=== PATIENT | male | born 1985 | race Caucasian/White ===

== ENCOUNTER 2016-07-03 12:25 | Inpatient (IN) | payer OTHER ==
[~2016-07-03] VITALS: Ht 185.4 cm; Wt 88.5 kg
--- NOTE | 2016-07-03 14:00 | ED GENERAL ADULT ---
History of Present Illness General Chief Complaint: Animal/Insect Bite Stated Complaint: SPIDER BIT PER PT Source: patient Exam Limitations: no limitations Vital Signs & Intake/Output Vital Signs & Intake/Output Vital Signs Date Time Temp Pulse Resp B/P B/P Pulse O2 O2 Flow FiO2 Mean Ox Delivery Rate 07/03 2009 Room Air 07/03 2008 100.3 07/03 2008 100.3 100 22 108/52 98 Room Air 07/03 1936 99.2 90 16 119/57 98 Room Air 07/03 1848 100.4 07/03 1846 100.4 90 18 112/54 97 Room Air 07/03 1605 99.4 108 20 102/51 99 Room Air 07/03 1449 101.1 07/03 1443 100.8 07/03 1432 100.8 118 20 138/88 99 Room Air 07/03 1235 101.8 07/03 1230 101.8 120 20 152/93 97 Room Air Allergies Coded Allergies: No Known Allergies (07/03/16) Reconcile Medications No Known Home Medications Triage Note: LEFT SHIELDS RED AND SWOLLEN SINCE YESTERDAY. PT STATES HE INJURES HIMSELF FREQUENTLY AT WORK BUT DOESN'T REMEMBER RUNNING INTO ANYTHING AT WORK. PT QUESTIONING WHETHER HE WAS BITTEN BY SPIDER. PT VERY ANXIOUS IN TRIAGE. PT STATES HE HAS FLU LIKE SYMPTOMS THAT STARTED YESTERDAY Triage Nurses Notes Reviewed? yes Onset: Abrupt Duration: day(s): (few), constant, continues in ED Timing: single episode today Injury Environment: home Severity: moderate, severe No Modifying Factors: none HPI: 31-year-old male comes into emergency room for further evaluation of swelling and redness to his left lower leg. Patient reports that he does not recall any injury or trauma to the leg that he can remember. He has been going on for the last couple days. Today he has been having fever chills and body aches. Some associated nausea. Its a sharp throbbing pain. No prior history. Denies any other associated symptoms. (AUDIE DORADO) Past History Travel History Traveled to [place] past 21 day No Medical History Any Pertinent Medical History? none Surgical History Surgical History: neck/cervical Psychosocial History What is your primary language Dominican Tobacco Use: Never used ETOH Use: denies use Illicit Drug Use: marijuana Family History Hx Contributory? No (AUDIE DORADO) Review of Systems Review of Systems Constitutional: Reports: see HPI. EENTM: Reports: no symptoms. Respiratory: Reports: no symptoms. Cardiovascular: Reports: no symptoms. GI: Reports: no symptoms. Genitourinary: Reports: no symptoms. Musculoskeletal: Reports: see HPI. Skin: Reports: see HPI. Neurological/Psychological: Reports: no symptoms. Hematologic/Endocrine: Reports: no symptoms. Immunologic/Allergic: Reports: no symptoms. All Other Systems: Reviewed and Negative (AUDIE DORADO) Physical Exam Physical Exam General Appearance: well developed/nourished, alert, awake Head: atraumatic Eyes: Bilateral: normal appearance. Ears, Nose, Throat: normal pharynx, hearing grossly normal Neck: normal inspection, full range of motion Respiratory: normal breath sounds, no respiratory distress Cardiovascular: regular rate/rhythm, tachycardia Extremities: swelling, erythema, dorsalis pedis pulse intact, located on left anterior tibia,4" x 4.5" Neurologic/Psych: awake, alert, oriented x 3, normal gait Skin: rash (see above) Lymphatic: inguinal node tender (L) (swollen) Core Measures ACS in differential dx? No CVA/TIA Diagnosis: No Severe Sepsis Present: Yes BC x2: Yes Lactic Acid x2: Yes IV ABX Broad Spectrum: Yes NS/LR Started: Yes Septic Shock Present: No (AUDIE DORADO) Progress Differential Diagnoses I considered the following diagnoses in my evaluation of the patient: Cellulitis, abscess, osteomyelitis, sepsis, Lyme disease, necrotizing fasciitis, Plan of Care: Orders Procedure Date/time Status Heart Healthy Diet 07/04 B Active Pathway - chart 07/03 2021 Active Pathway - chart 07/04 2019 Active Code Status 07/04 2019 Active Vital Signs 07/03 2009 Active Teach/Educate 07/03 2009 Active Pain Treatment and Response 07/03 2009 Active Nutritional Intake, Monitor 07/03 2009 Active Isolation 07/03 2009 Active Intake & Output 07/03 2009 Active Patient Care Conference 07/03 2010 Active Activity/Ambulation 07/03 2009 Active Admit to inpatient 07/03 1741 Active Vital Signs 07/03 1741 Active Code Status 07/03 1741 Complete Patient Data 07/03 1725 Active LACTIC ACID 07/03 1649 Complete Add-on Test (ER Only) 07/03 1645 Active EXTREMETIES CULTURE 07/03 1636 Active Intake & Output 07/03 1444 Active BLOOD CULTURE 07/03 1349 Active LACTIC ACID 07/03 1349 Complete COMPREHENSIVE METABOLIC PANEL 07/03 1349 Complete CBC WITHOUT DIFFERENTIAL 07/03 1349 Complete House Staff 07/03 UNK Active Vital Signs 07/03 UNK Active Current Medications Sig/Rk Start time Last Medication Dose Stop Time Status Admin Enoxaparin Sodium 40 MG DAILY 07/04 1000 UNVr (Lovenox) Cefazolin Sodium 1,000 MG IQ8 07/04 0000 UNVr (Kefzol-Ancef Inj) Acetaminophen 650 MG Q6P PRN 07/03 2030 UNVr (Tylenol) Laboratory Tests 07/03/16 1642: Lactic Acid 0.8 07/03/16 142: Anion Gap 13, Estimated GFR > 60, BUN/Creatinine Ratio 13.8, Glucose 110 H, Lactic Acid 1.3, Calcium 9.6, Total Bilirubin 1.0, AST 30, ALT 35, Alkaline Phosphatase 58, Total Protein 7.5, Albumin 4.6, Globulin 2.9, Albumin/Globulin Ratio 1.6, CBC w Diff MAN DIFF ORDERED, RBC 4.76, MCV 86.0, MCH 29.0, RDW 13.5, MPV 8.1, Gran % 94.1 H, Lymphocytes % 2.9 L, Monocytes % 2.8, Eosinophils % 0.2, Basophils % 0 L, Absolute Granulocytes 16.6 H, Segmented Neutrophils 87 H, Band Neutrophils 2, Absolute Lymphocytes 0.5 L, Lymphocytes 6 L, Monocytes 3, Absolute Monocytes 0.5, Eosinophils 1, Absolute Eosinophils 0, Basophils 1, Absolute Basophils 0, Platelet Estimate ADEQUATE, Normocytic RBCs VERIFIED, Normochromic RBCs VERIFIED, PUBS MCHC 33.7 Microbiology 07/03 1636 EXTREMITIE: Culture & Sensitivity - RECD 07/03 163 EXTREMITIE: Gram Stain - RECD 07/03 1422 BLOOD: Blood Culture - RECD 07/03 1400 BLOOD: Blood Culture - RECD Diagnostic Imaging: Viewed by Me: Radiology Read, Ultrasound. Discussed w/RAD: Radiology Read, Ultrasound. Radiology Impression: SERVICE DATE: 07/03/16-1350 EXAM TYPE: RAD - XRY-TIBIA- FIBULA, LEFT EXAMINATION: XR TIBIA AND FIBULA, LEFT CLINICAL INFORMATION: 31- year-old male presented with erythema, swelling, fever, over the left tibial region, suspected osteomyelitis. COMPARISON: None. TECHNIQUE: AP and lateral views of the left tibia and fibula were obtained. Total of 4 images. FINDINGS: Soft tissue swelling is noted along the proximal to mid anterior aspect of the left tibia without any soft tissue gas formation or any underlying cortical destruction or periosteal reaction or any radiopaque foreign body. Specifically, the underlying tibia as well as the fibula appear intact without any focal osseous abnormality or periosteal reaction. IMPRESSION: Nonspecific soft tissue swelling is noted along the proximal to mid anterior part of the left leg without any underlying radiographic evidence of osteomyelitis. DICTATED BY: JW BAZAN MD DATE/TIME DICTATED:07/03/161438 POLYTECHNIC TEACHER:JOHN DATE/TIME TRANSCRIBED:07/03/161438 CONFIDENTIAL, DO NOT COPY WITHOUT ALEXIS, SERVICE DATE: 07/03/16 EXAM TYPE: US - US-SUPERFICIAL IMAGING EXTREMI EXAMINATION: US SUPERFICIAL IMAGING, EXTREMITY CLINICAL INFORMATION: Swelling and pain at the left lower anterior tibia. Rule out abscess. COMPARISON: None TECHNIQUE: Multiple grayscale and color Doppler sonographic images were obtained through the area of patient's symptoms at the anterior aspect of the mid tibia. FINDINGS: A small focal area of ill-defined hypoechoic material is present in the edematous subcutaneous soft tissues at the area of palpable abnormality. This area measures 0.9 x 0.5 x 0.9 cm. Surrounding soft tissues are edematous with increased blood flow. No evidence of extension into the deeper soft tissues below the superficial fascial plane overlying the musculature. IMPRESSION: A 0.9 cm complex in the subcutaneous collection in the soft tissues overlying the mid tibia, most compatible with a small abscess. DICTATED BY: BEATRICE KERNS MD DATE/ TIME DICTATED:07/03/161529 POLYTECHNIC TEACHER:JOHN Initial ED EKG: none (AUDIE DORADO) Departure Departure Disposition: STILL A PATIENT Condition: Stable Clinical Impression Primary Impression: Sepsis Secondary Impressions: Cellulitis Referrals: PATIENT HAS NO PRIMARY CARE DR (PCP/Family) Departure Forms: Customer Survey General Discharge Information Prescriptions: Current Visit Scripts No Known Home Medications Admission Note Spoke With: ARTEMIO MERINO MD Documentation of Exam: Documentation of any treatments & extenuating circumstances including Concerns Regarding Discharge (functional status, medication knowledge or non-compliance, living conditions, etc.) that warrant an admission rather than observation: IV fluids ordered. 3 L ordered. icv UNASYN ordered. Blood cultures drawn. Patient will require serial blood pressure checks as well as repeat blood work. IV antibiotics. Meets criteria for sepsis. (AUDIE DORADO) PA/FAMILY PRACTICE PHYSICIAN Co-Sign Statement Statement: ED Attending supervision documentation- [x] I saw and evaluated the patient. I have also reviewed all the pertinent lab results and diagnostic results. I agree with the findings and the plan of care as documented in the PA's/FAMILY PRACTICE PHYSICIAN's documentation. [x] I have reviewed the ED Record and agree with the PA's/FAMILY PRACTICE PHYSICIAN's documentation. [] Additions or exceptions (if any) to the PAs/FAMILY PRACTICE PHYSICIAN's note and plan are summarized below: [] (ANA SAINI DO) Procedures Incision and Drainage Site: left lower extremity Blade Size: 11 I & D Procedure: Yes: betadine prep, sterile drapes applied, sterile dressing applied. No: wick placed. Progress: 1% lidocaine, no discharge, culture obtained, too small of area for packing (AUDIE DORADO) Critical Care Note Critical Care Note Critical Care Time: 30-74 min (35 min) (AUDIE DORADO)
[2016-07-03 14:33] LABS: ABSOLUTE BASOPHIL COUNT 0 /CUMM (0.0-0.2); ABSOLUTE EOSINOPHIL COUNT 0 /CUMM (0.0-0.7); ABSOLUTE GRANULOCYTE CT 16.6 /CUMM (1.4-6.5); ABSOLUTE LYMPH COUNT 0.5 /CUMM (1.2-3.4); ABSOLUTE MONOCYTE COUNT 0.5 /CUMM (0.10-0.60); BASOPHIL % 0 % (0.0-2.0); EOSINOPHIL % 0.2 % (0-5); GRANULOCYTE % 94.1 % (42.2-75.2); MEAN CORPUSCULAR HGB CONC 33.7 G/DL (33.0-37.0); MEAN PLATELET VOLUME 8.1 FL (7.4-10.4); PLATELET COUNT 257 /CUMM (130-400); RBC DISTRIBUTION WIDTH 13.5 % (11.5-14.5); RED BLOOD CELL CT 4.76 /CUMM (4.70-6.10); WHITE BLOOD CELL COUNT 17.6 /CUMM (4.8-10.8)
--- NOTE | 2016-07-03 14:48 | RADIOLOGY REPORT ---
EXAMINATION: XR TIBIA AND FIBULA, LEFT CLINICAL INFORMATION: 31-year-old male presented with erythema, swelling, fever, over the left tibial region, suspected osteomyelitis. COMPARISON: None. TECHNIQUE: AP and lateral views of the left tibia and fibula were obtained. Total of 4 images. FINDINGS: Soft tissue swelling is noted along the proximal to mid anterior aspect of the left tibia without any soft tissue gas formation or any underlying cortical destruction or periosteal reaction or any radiopaque foreign body. Specifically, the underlying tibia as well as the fibula appear intact without any focal osseous abnormality or periosteal reaction. IMPRESSION: Nonspecific soft tissue swelling is noted along the proximal to mid anterior part of the left leg without any underlying radiographic evidence of osteomyelitis.
--- NOTE | 2016-07-03 15:41 | ULTRASOUND REPORT ---
EXAMINATION: US SUPERFICIAL IMAGING, EXTREMITY CLINICAL INFORMATION: Swelling and pain at the left lower anterior tibia. Rule out abscess. COMPARISON: None TECHNIQUE: Multiple grayscale and color Doppler sonographic images were obtained through the area of patient's symptoms at the anterior aspect of the mid tibia. FINDINGS: A small focal area of ill-defined hypoechoic material is present in the edematous subcutaneous soft tissues at the area of palpable abnormality. This area measures 0.9 x 0.5 x 0.9 cm. Surrounding soft tissues are edematous with increased blood flow. No evidence of extension into the deeper soft tissues below the superficial fascial plane overlying the musculature. IMPRESSION: A 0.9 cm complex in the subcutaneous collection in the soft tissues overlying the mid tibia, most compatible with a small abscess.
--- NOTE | 2016-07-03 16:50 | History & Physical ---
HELENA GORDON 07/03/16 2070: General Information and HPI MD Statement: I have seen and personally examined YONI HODGE and documented this H&P. The patient is a 31 year old M who presented with a patient stated chief complaint of redness and swelling Source of Information: patient Exam Limitations: no limitations History of Present Illness: 31-year-old gentleman with past medical history significant for Lyme disease treated with 3 weeks doxycycline about 15 years ago present is a gentleman with redness and swelling in left lower extremity. 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 Does not remember any trauma. He noticed swelling and redness of his left estrella early this morning and no associated itching, punctate menjivar or discharge. He also reports having subjective fevers, myalgias and chills. Denies nausea, abdominal pain, any other rash anywhere else Allergies/Medications Allergies: Coded Allergies: No Known Allergies (07/03/16) Compliance With Home Meds: UNKNOWN Past History Travel History Traveled to [place] past 21 day No Surgical History Surgical History: neck/cervical Past Family/Social History Family History Relations & Conditions if any Relation not specified for: Lung cancer Psychosocial History Where do you live? Home Who Do You Live With? self Smoking Status: Never Smoked ETOH Use: denies use Illicit Drug Use: marijuana Functional Ability ADLs Independent: dressing, eating, toileting, bathing. Ambulation: independent IADLs Independent: shopping, housework, finances, food prep, telephone, transportation , medication admin. Review of Systems Review of Systems Constitutional: Reports: chills, fever, malaise. Denies: diaphoresis, weakness, unexplained weight loss. Cardiovascular: Denies: chest pain, edema, orthopena, palpitations, peripheral edema, syncope. Respiratory: Denies: cough, hemoptysis, orthopnea, short of breath, sputum production, stridor, wheezing. GI: Denies: abdominal pain, bloating, constipation, diarrhea, distention, bowel incontinence, melena, nausea, bloody stool, changes in stool, vomiting, steatorrhea. Genitourinary: Denies: discharge, dysuria, frequency, hematuria, hesitation, nocturia, pain, urgency. Exam & Diagnostic Data Last 24 Hrs of Vital Signs/I&O Vital Signs Date Time Temp Pulse Resp B/P B/P Pulse O2 O2 Flow FiO2 Mean Ox Delivery Rate 07/03 2009 Room Air 07/03 2008 100.3 07/03 2008 100.3 100 22 108/52 98 Room Air 07/03 1936 99.2 90 16 119/57 98 Room Air 07/03 1848 100.4 07/03 1846 100.4 90 18 112/54 97 Room Air 07/03 1605 99.4 108 20 102/51 99 Room Air 07/03 1449 101.1 07/03 1443 100.8 07/03 1432 100.8 118 20 138/88 99 Room Air 07/03 1235 101.8 07/03 1230 101.8 120 20 152/93 97 Room Air Intake & Output 07/03 1600 07/03 0800 07/03 0000 Intake Total 1050 Output Total Balance 1050 Intake, IV 1050 Patient 195 lb Weight Physical Exam General Appearance Alert, Oriented X3, Cooperative, No Acute Distress Skin non fluctuant swelling noted on anterior left estrella HEENT Atraumatic, PERRLA, EOMI, Mucous Membr. moist/pink Neck Supple, No thryomegaly Lymphatic Cervical nl Cardiovascular Regular Rate, Normal S1, Normal S2 Lungs Clear to Auscultation, Normal Air Movement Abdomen Normal Bowel Sounds, Soft, No Tenderness Extremities No Edema Diagnostic Data Other Results SERVICE DATE: 07/03/16 EXAM TYPE: US - US-SUPERFICIAL IMAGING EXTREMI FINDINGS: A small focal area of ill-defined hypoechoic material is present in the edematous subcutaneous soft tissues at the area of palpable abnormality. This area measures 0.9 x 0.5 x 0.9 cm. Surrounding soft tissues are edematous with increased blood flow. No evidence of extension into the deeper soft tissues below the superficial fascial plane overlying the musculature. IMPRESSION: A 0.9 cm complex in the subcutaneous collection in the soft tissues overlying the mid tibia, most compatible with a small abscess. SERVICE DATE: 07/03/16 EXAM TYPE: RAD - JMO-LSBNL-JUOGTI, LEFT FINDINGS: Soft tissue swelling is noted along the proximal to mid anterior aspect of the left tibia without any soft tissue gas formation or any underlying cortical destruction or periosteal reaction or any radiopaque foreign body. Specifically, the underlying tibia as well as the fibula appear intact without any focal osseous abnormality or periosteal reaction. IMPRESSION: Nonspecific soft tissue swelling is noted along the proximal to mid anterior part of the left leg without any underlying radiographic evidence of osteomyelitis. Assessment/Plan Assessment: 31-year-old gentleman with past medical history significant for Lyme disease treated with 3 weeks doxycycline about 15 years ago present is a gentleman with redness and swelling in left lower extremity. In ER was found to have fever of 101.8 and white count of 17.6. 0.9 cm complex in the subcutaneous collection in the soft tissues overlying the mid tibia, most compatible with a small abscess. Attempted to drain in ER but was unsuccessful. Was given one dose of IV Unasyn and IV clindamycin in Ed. Problem List: cellulitis/abscess Plan: Admitted general medicine floor vitals per protocol Will start IV cefazolin, pending cultures Continue to trend WBC Regular diet DVT prophylaxis with Lovenox Patient is full code As Ranked By This Provider Problem List: 1. Cellulitis Core Measures/Miscellaneous Acute Coronary Syndrome ACS Diagnosis: No Cerebrovascular Accident CVA/TIA Diagnosis: No Congestive Heart Failure CHF Diagnosis: No Venous Thromboembolism VTE Risk Factors: No Risk Factors No [facility] VTE prophylaxis d/t: LE Edema No VTE Pharm Prophylaxis d/t: No contraindications VTE Diagnosis: No VTE Type: NONE VTE Confirmed by (Test): NONE Severe Sepsis Severe Sepsis Present: Yes BC x2: Yes Lactic Acid x2: Yes IV ABX Broad Spectrum: Yes NS/LR Started: Yes Septic Shock Septic Shock Present: No Miscellaneous Documentation Attending Case Discussed With: ANGELIQUE NAJERA,ARTEMIO Palacio Primary Care Physician: PATIENT HAS NO PRIMARY CARE DR Patient sees these Specialists none Level of Patient Care: General Medicine ISSAC MENDOZA MD 07/03/162101: Resident Review Statement Resident Statement: examined this patient, discussed with sales intern Other Findings: 31 YO healthy male with a pmh of remote lyme disease presents to the ER from home c/o left sided leg pain and swelling. Reports that he may have injuried his leg at work, reports fixing a commerial garage door. States the garage was litered with feces from rodents. Since this injury on sunday reports swelling, pain with fevers and chills. Temperature 99.4, WBC 17.6, granulocytes 94%. On examination erythema, pain, edema, regional lymphadenopathy (inguinal) While in ER was treated for cellulits with clindamycin and unasyn. We will switch this to IV cefazolin. Continue limb elevation, site has been marked. ARTEMIO MERINO 07/13/16 1545: General Information and HPI Allergies/Medications Home Med list Amoxicillin/Potassium Clav (Augmentin 875-125 Tablet) 875 MG-125 MG TABLET 1 TAB PO BID cellulitis Attending MD Review Statement Attending Statement Attending MD Statement: examined this patient, discuss w/resident/PA/REGIONAL ACCOUNT MANAGER, agreed w/resident/PA/REGIONAL ACCOUNT MANAGER, reviewed EMR data (avail), discussed with nursing Attending Assessment/Plan: please see my separate attending note for more details
--- NOTE | 2016-07-03 18:09 | Admission Certification ---
Admission Certification Certification Statement - As attending physician, I certify that at the time of - admission, based on clinical presentation, severity of - symptoms, need for further diagnostic testing and - therapeutic interventions, and risk of adverse outcomes - without in-hospital treatment, in my clinical assessment, - this patient requires an acute hospital stay for a minimum - of two nights or longer. I have also considered psychsocial - factors such as support system, advanced age, financial - issues, cognitive issues, and failed out-patient treatments, - past re-admission history, safety of patient, and lack of - compliance as applicable. Specific rationale supporting this admission is: cellulitis and small abscess on left lower extremity
--- NOTE | 2016-07-03 18:12 | PN- Att Addend ---
Attending MD Review Statement Attending Statement Attending MD Statement: examined this patient, discuss w/resident/PA/CUTTING DEPARTMENT SUPERVISOR, agreed w/resident/PA/CUTTING DEPARTMENT SUPERVISOR, reviewed EMR data (avail), discussed w/nursing, discussed w/ case mgmt Attending Assessment/Plan: Laboratory Tests 07/03/16 1642: Lactic Acid 0.8 07/03/16 1422: Anion Gap 13, Estimated GFR > 60, BUN/Creatinine Ratio 13.8, Glucose 110 H, Lactic Acid 1.3, Calcium 9.6, Total Bilirubin 1.0, AST 30, ALT 35, Alkaline Phosphatase 58, Total Protein 7.5, Albumin 4.6, Globulin 2.9, Albumin/Globulin Ratio 1.6, CBC w Diff MAN DIFF ORDERED, RBC 4.76, MCV 86.0, MCH 29.0, RDW 13.5, MPV 8.1, Gran % 94.1 H, Lymphocytes % 2.9 L, Monocytes % 2.8, Eosinophils % 0.2, Basophils % 0 L, Absolute Granulocytes 16.6 H, Segmented Neutrophils 87 H, Band Neutrophils 2, Absolute Lymphocytes 0.5 L, Lymphocytes 6 L, Monocytes 3, Absolute Monocytes 0.5, Eosinophils 1, Absolute Eosinophils 0, Basophils 1, Absolute Basophils 0, Platelet Estimate ADEQUATE, Normocytic RBCs VERIFIED, Normochromic RBCs VERIFIED, PUBS MCHC 33.7 Vital Signs Date Time Temp Pulse Resp B/P B/P Pulse O2 O2 Flow FiO2 Mean Ox Delivery Rate 07/03 1605 99.4 108 20 102/51 99 Room Air 07/03 1449 101.1 07/03 1443 100.8 07/03 1432 100.8 118 20 138/88 99 Room Air 07/03 1235 101.8 07/03 1230 101.8 120 20 152/93 97 Room Air 31-year-old male with past medical history of Lyme disease in the past for which he was treated with 3 weeks of antibiotics presented to the emergency room. The redness and swelling in the left lower extremity and the estrella area. Patient in ER was found to have fever of 101.8 and white count of 17.6. Patient is being admitted for cellulitis. There was some fluid collection 1 cm on ultrasound and an attempt was made by the ER to drain it but no fluid was obtained. Cellulitis/abscess-we'll admit him to medicine and start him on IV cefazolin. We have marked the area of cellulitis and I will follow-up on it tomorrow. Will see how patient does on IV antibiotics. He got a dose of IV Unasyn and IV clindamycin in the emergency room. We will repeat a white count in the morning.
[2016-07-03 20:09] VITALS: BP 108/52
[2016-07-03 21:24] VITALS: BP 100/50
[2016-07-04 02:18] VITALS: BP 110/70
[2016-07-04 06:25] VITALS: BP 130/74
[2016-07-04 07:51] LABS: ABSOLUTE BASOPHIL COUNT 0 /CUMM (0.0-0.2); ABSOLUTE EOSINOPHIL COUNT 0.1 /CUMM (0.0-0.7); ABSOLUTE GRANULOCYTE CT 16.2 /CUMM (1.4-6.5); ABSOLUTE LYMPH COUNT 0.4 /CUMM (1.2-3.4); ABSOLUTE MONOCYTE COUNT 0.7 /CUMM (0.10-0.60); BASOPHIL % 0 % (0.0-2.0); EOSINOPHIL % 0.4 % (0-5); GRANULOCYTE % 93.6 % (42.2-75.2); MEAN CORPUSCULAR HGB 29.2 PG (27.0-31.0); MEAN CORPUSCULAR HGB CONC 33.5 G/DL (33.0-37.0); MEAN PLATELET VOLUME 8.9 FL (7.4-10.4); PLATELET COUNT 208 /CUMM (130-400); RBC DISTRIBUTION WIDTH 13.7 % (11.5-14.5); RED BLOOD CELL CT 4.12 /CUMM (4.70-6.10)
[2016-07-04 08:02] LABS: HEMATOCRIT 35.8 % (42-52)
[2016-07-04 08:51] LABS: WHITE BLOOD CELL COUNT 17.3 /CUMM (4.8-10.8)
--- NOTE | 2016-07-04 13:45 | PN- Housestaff ---
HELENA GORDON 07/04/16 1345: Subjective Follow-up For: cellulitis Subjective: Seen and examined patient, complains of chills overnight and worsening pain in his left leg. Bear weight on that leg with difficulty. Denies chest pain, shortness of breath, abdominal pain. Review of Systems Constitutional: Reports: chills, fever. Denies: diaphoresis, malaise, weakness, unexplained weight loss. Cardiovascular: Denies: chest pain, edema, orthopena, palpitations, peripheral edema, syncope. Respiratory: Denies: cough, hemoptysis, orthopnea, short of breath, sputum production, stridor, wheezing. Objective Last 24 Hrs of Vital Signs/I&O Vital Signs Date Time Temp Pulse Resp B/P B/P Pulse O2 O2 Flow FiO2 Mean Ox Delivery Rate 07/04 1444 100.8 95 20 126/60 96 Room Air 07/04 1304 102.4 07/04 0625 99.0 71 20 130/74 96 Room Air 07/04 0334 100.0 07/04 0219 100.4 07/04 0218 100.4 90 20 110/70 95 Room Air 07/03 2154 99.9 87 20 97 Room Air 07/03 2151 100.3 07/03 2124 100/50 07/03 2009 Room Air 07/03 2008 100.3 07/03 2009 100.3 100 22 108/52 98 Room Air 07/03 1936 99.2 90 16 119/57 98 Room Air 07/03 1848 100.4 07/03 1846 100.4 90 18 112/54 97 Room Air Intake & Output 07/04 1600 07/04 0800 07/04 0000 Intake Total 1200 240 Output Total 850 700 Balance 1200 -850 -460 Intake, IV 800 Intake, Oral 400 240 Number 1 0 Bowel Movements Output, Urine 850 700 Patient 195 lb Weight Weight Reported by Patient Measurement Method Physical Exam General Appearance: Alert, Oriented X3, Cooperative, No Acute Distress Skin: blackish dicolorations of hands b/l Cardiovascular: Regular Rate, Normal S1, Normal S2 Lungs: Clear to Auscultation, Normal Air Movement Abdomen: Normal Bowel Sounds, Soft, No Tenderness Extremities: increased warmth and tenderness over left lower extremity compared to yesterday. Current Medications: Current Medications Sig/Rk Start time Last Medication Dose Route Stop Time Status Admin Acetaminophen 650 MG .STK-MED ONE 07/04 0220 DC PO 07/04 0221 Acetaminophen 650 MG Q6P PRN 07/03 2030 AC 07/04 PO 0219 Acetaminophen 0 .STK-MED ONE 07/03 1848 DC PO Acetaminophen 650 MG ONCE ONE 07/03 1845 DC 07/03 PO 07/03 1846 1848 Ampicillin Sodium/ 3,000 MG Q6H 07/04 1000 AC 07/04 Sulbactam Sodium IV 1555 Sodium Chloride 100 ML Ampicillin Sodium/ 3,000 MG Q6 07/04 0755 DC 07/04 Sulbactam Sodium IV 0959 Sodium Chloride 100 ML Cefazolin Sodium 1,000 MG IQ8 07/04 0000 DC 07/04 IV 0104 Codeine 15 MG Q4P PRN 07/03 2145 DC 07/04 PO 1136 Enoxaparin Sodium 40 MG DAILY 07/04 1000 07/04 SC 1001 Ibuprofen 400 MG ONCE ONE 07/03 2145 DC 07/03 PO 07/03 2146 2151 Morphine Sulfate 2 MG Q4P PRN 07/03 2130 AC 07/04 IV 1555 Ondansetron HCl 4 MG ONCE ONE 07/04 0145 DC 07/04 IV 07/04 0146 0137 Ondansetron HCl 4 MG Q6P PRN 07/04 0130 DC IV Ondansetron HCl 0 .STK-MED ONE 07/03 1833 DC .ROUTE Ondansetron HCl 4 MG ONCE ONE 07/03 1830 DC 07/03 IV 07/03 1831 1836 Oxycodone/ 1 TAB Q4P PRN 07/04 1200 AC 07/04 Acetaminophen PO 1301 Sodium Chloride 1,000 ML Q10H 07/04 0800 AC 07/04 IV 07/05 0359 0943 Sodium Chloride 1,000 ML BOLUS ONE 07/03 1630 DC 07/03 IV 07/03 1729 1645 Sodium Chloride 1,000 ML BOLUS ONE 07/03 1630 DC 07/03 IV 07/03 1729 1730 Tetanus Immune 250 UNITS ONCE ONE 07/04 0830 DC 07/04 Globulin IM 07/04 0831 0959 Tetanus Immune 3,000 UNITS ONCE ONE 07/04 0800 CAN Globulin IM 07/04 0801 Trimethobenzamide HCl 200 MG 4 TIMES/DAY PRN 07/04 0145 AC IM Last 24 Hrs of Lab/Eloy Results Last 24 Hrs of Labs/Mics: Laboratory Tests 07/04/16 0618: CBC w Diff NO MAN DIFF REQ, RBC 4.12 L, MCV 87.0, MCH 29.2, RDW 13.7, MPV 8.9, Gran % 93.6 H, Lymphocytes % 2.1 L, Monocytes % 3.9, Eosinophils % 0.4, Basophils % 0 L, Absolute Granulocytes 16.2 H, Absolute Lymphocytes 0.4 L, Absolute Monocytes 0.7 H, Absolute Eosinophils 0.1, Absolute Basophils 0, PUBS MCHC 33.5 Assessment/Plan Assessment: 31-year-old gentleman with past medical history significant for Lyme disease treated with 3 weeks doxycycline about 15 years ago present is a gentleman with redness and swelling in left lower extremity. In ER was found to have fever of 101.8 and white count of 17.6. 0.9 cm complex in the subcutaneous collection in the soft tissues overlying the mid tibia, most compatible with a small abscess. Attempted to drain in ER but was unsuccessful. Was given one dose of IV Unasyn and IV clindamycin in Ed. Hospital day 1 Continues to be febrile with wbc of 17. stable BP. Complains of worsening pain. Cultures growing beta group strep A Problem List: cellulitis/abscess Plan: continue general medicine floor,vitals per protocol as he is currently meets SIRs will continue with IVF for another two bags surgical consult obtain regarding possible I/D Antibiotic switch to IV unasyn Pain control with percocet and IV morphine for break through pain Continue to trend WBC Regular diet DVT prophylaxis with Lovenox Patient is full code Problem List: 1. Cellulitis 2. Sepsis Pain Ratin Pain Location: left leg Pain Goal: Pain 4 or less Pain Plan: percocet and IV morphine for break through Tomorrow's Labs & Rationales: cbc JESUS MURPHY MD 07/04/16 1600: Attending MD Review Statement Attending Statement Attending MD Statement: examined this patient, discuss w/resident/PA/ROLL COATING MACHINE OPERATOR, agreed w/resident/PA/ROLL COATING MACHINE OPERATOR, reviewed EMR data (avail), discussed with nursing, discussed with case mgmt, reviewed images Attending Assessment/Plan: 31-year-old male past medical history of tobacco use was here with an acute cellulitis of the left estrella area with a 0.9 cm subcutaneous collection. Given that he is still febrile to 102 and his white count is still 17,000 will call a general surgery consult to see if there is anything to be drained. I am worried that there might be an underlying abscess that needs to be drained or the possibility that this is an MRSA cellulitis/abscess although my suspicion for MRSA is really very low given that the Pus is growing strep. At this point I'll continue the IV Unasyn, follow-up and general surgery closely and follow clinically.
[2016-07-04 14:44] VITALS: BP 126/60
--- NOTE | 2016-07-04 14:54 | Cons- General Surgery ---
General Information and HPI Consulting Request Date of Consult: 07/04/16 Requested By: JEFFREY NAJERA,JESUS Caldwell History of Present Illness: CC: Left leg cellulitis HPI: 31-year-old nondiabetic nonsmoker otherwise healthy no medications just a history of with repeated procedures, no history of MRSA no family history of MRSA but at work he often gets some cuts and scrapes he doesn't remember this one particular but Sunday morning he noticed some tenderness redness and swelling to his left estrella it got worse he came to the hospital is been admitted he's had some fevers leukocytosis ultrasound was not that impressive but because of persistent pain and fever and leukocytosis surgical consult was called for incision. Presently he has no pain he says the redness and swelling has improved dramatically since earlier this morning he is able to ambulate denies any chills or sweats right now no nausea no headaches. I've reviewed the [facility]. No history of GERD, PUD, bleeding problems, heart disease or issues with anesthesia. Allergies/Medications Allergies: Coded Allergies: No Known Allergies (07/03/16) Home Med List: No Known Home Medications Current Medications: I reviewed Current Medications Sig/Rk Start time Last Medication Dose Route Stop Time Status Admin Acetaminophen 650 MG .STK-MED ONE 07/04 0220 DC PO 07/04 0221 Acetaminophen 650 MG Q6P PRN 07/03 2030 AC 07/04 PO 0219 Acetaminophen 0 .STK-MED ONE 07/03 1848 DC PO Acetaminophen 650 MG ONCE ONE 07/03 1845 DC 07/03 PO 07/03 1846 1848 Ampicillin Sodium/ 3,000 MG Q6H 07/04 1000 AC Sulbactam Sodium IV Sodium Chloride 100 ML Ampicillin Sodium/ 3,000 MG Q6 07/04 0755 DC 07/04 Sulbactam Sodium IV 0959 Sodium Chloride 100 ML Ampicillin Sodium/ 0 .STK-MED ONE 07/03 1636 DC Sulbactam Sodium .ROUTE Ampicillin Sodium/ 3,000 MG ONCE ONE 07/03 1630 DC 07/03 Sulbactam Sodium IV 07/03 1659 1645 Sodium Chloride 100 ML Cefazolin Sodium 1,000 MG IQ8 07/04 0000 DC 07/04 IV 0104 Codeine 15 MG Q4P PRN 07/03 2145 DC 07/04 PO 1136 Enoxaparin Sodium 40 MG DAILY 07/04 1000 AC 07/04 SC 1001 Ibuprofen 400 MG ONCE ONE 07/03 2145 DC 07/03 PO 07/03 2146 2151 Lidocaine 0 .STK-MED ONE 07/03 1614 DC .ROUTE Morphine Sulfate 2 MG Q4P PRN 07/03 2130 AC 07/04 IV 0828 Ondansetron HCl 4 MG ONCE ONE 07/04 0145 DC 07/04 IV 07/04 0146 0137 Ondansetron HCl 4 MG Q6P PRN 07/04 0130 DC IV Ondansetron HCl 0 .STK-MED ONE 07/03 1833 DC .ROUTE Ondansetron HCl 4 MG ONCE ONE 07/03 1830 DC 07/03 IV 07/03 1831 1836 Oxycodone/ 1 TAB Q4P PRN 07/04 1200 AC 07/04 Acetaminophen PO 1301 Sodium Chloride 1,000 ML Q10H 07/04 0800 AC 07/04 IV 07/05 0359 0943 Sodium Chloride 1,000 ML BOLUS ONE 07/03 1630 DC 07/03 IV 07/03 1729 1645 Sodium Chloride 1,000 ML BOLUS ONE 07/03 1630 DC 07/03 IV 07/03 1729 1730 Sodium Chloride 1,000 ML BOLUS ONE 07/03 1400 DC 07/03 IV 07/03 1459 1442 Tetanus Immune 250 UNITS ONCE ONE 07/04 0830 DC 07/04 Globulin IM 07/04 0831 0959 Tetanus Immune 3,000 UNITS ONCE ONE 07/04 0800 CAN Globulin IM 07/04 0801 Trimethobenzamide HCl 200 MG 4 TIMES/DAY PRN 07/04 0145 AC IM Past History Medical History Blood Transfusion Hx: No Neurological: NONE EENT: NONE Cardiovascular: NONE Respiratory: NONE Gastrointestinal: NONE Hepatic: NONE Renal: NONE Musculoskeletal: NONE Psychiatric: NONE Endocrine: NONE Blood Disorders: NONE Cancer(s): NONE 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 Home Who Do You Live With? self Smoking Status: Never Smoked ETOH Use: denies use Illicit Drug Use: marijuana Functional Ability ADLs Independent: dressing, eating, toileting, bathing. Ambulation: independent IADLs Independent: shopping, housework, finances, food prep, telephone, transportation , medication admin. Review of Systems Review of Systems: Constitutional: No fever, sweats or weight loss ENMT: No sore throat Cardiovascular: No chest pain, palpitations or leg swelling Respiratory: No shortness of breath, cough, or sputum or dyspnea on exertion GI: No GERD or bleeding per rectum : No dysuria or hematuria Musculoskeletal: No new muscle weakness, bone or joint pain Skin / Breast: No jaundice, rashes or itching Psychiatric: No history of drug or alcohol abuse no depression or anxiety Hematologic / lymphatic system: No problems with excessive bleeding, bruising, or blood clots Exam & Diagnostic Data Vital Signs and I&O Vital Signs Date Time Temp Pulse Resp B/P B/P Pulse O2 O2 Flow FiO2 Mean Ox Delivery Rate 07/04 1444 100.8 95 20 126/60 96 Room Air 07/04 1304 102.4 07/04 0625 99.0 71 20 130/74 96 Room Air 07/04 0334 100.0 07/04 0219 100.4 07/04 0218 100.4 90 20 110/70 95 Room Air 07/03 2154 99.9 87 20 97 Room Air 07/03 2151 100.3 07/03 2124 100/50 07/03 2009 Room Air 07/03 2009 100.3 07/03 2009 100.3 100 22 108/52 98 Room Air 07/03 1936 99.2 90 16 119/57 98 Room Air 07/03 1848 100.4 07/03 1846 100.4 90 18 112/54 97 Room Air 07/03 1605 99.4 108 20 102/51 99 Room Air Intake & Output 07/04 1600 07/04 0800 07/04 0000 07/03 1600 07/03 0800 07/03 0000 Intake Total 240 1050 Output Total 850 700 Balance -850 -460 1050 Intake, IV 1050 Intake, Oral 240 Number 0 Bowel Movements Output, Urine 850 700 Patient 195 lb 195 lb Weight Weight Reported by Patient Measurement Method Physical Exam: Constitutional: pleasant, no acute distress, conversant Eyes: sclera anicteric ENMT: ears and nose atraumatic, moist mucous membranes, good dentition, no lip lesions Neck: Supple, trachea is midline, no cervical or supraclavicular adenopathy and no palpable thyromegaly Cardiovascular: S1, S2, no murmurs, no peripheral edema Respiratory: clear to auscultation with normal respiratory effort and no intercostal retractions GI: abdomen soft, nontender, nondistended, no palpable hepatosplenomegaly Extremities / lymphatics: symmetrically warm, free range of motion especially left foot and ankle no peripheral edema, no cervical, supraclavicular, axillary, or inguinal adenopathy Musculoskeletal: Normal gait and station, no digital cyanosis, good muscle strength and tone no atrophy, motor grossly 5 out of 5 throughout Skin: no jaundice, no rashes warm, nondiaphoretic, the left tibial region there is some mild edema laterally there is minimal erythema if at all no induration or fluctuance is a small eschar over the bone and a tiny one below it Psychiatric: mood and affect are appropriate and alert and oriented to person place and time Last 24 Hours of Labs: I reviewed Laboratory Tests 07/04 07/03 0618 1642 Chemistry Lactic Acid (0.7 - 2.1 mmol/L) 0.8 Hematology CBC w Diff NO MAN DIFF REQ WBC (4.8 - 10.8 /CUMM) 17.3 H RBC (4.70 - 6.10 /CUMM) 4.12 L Hgb (14.0 - 18.0 G/DL) 12.0 L Hct (42 - 52 %) 35.8 L MCV (80.0 - 94.0 FL) 87.0 MCH (27.0 - 31.0 PG) 29.2 RDW (11.5 - 14.5 %) 13.7 Plt Count (130 - 400 /CUMM) 208 MPV (7.4 - 10.4 FL) 8.9 Gran % (42.2 - 75.2 %) 93.6 H Lymphocytes % (20.5 - 51.1 %) 2.1 L Monocytes % (1.7 - 9.3 %) 3.9 Eosinophils % (0 - 5 %) 0.4 Basophils % (0.0 - 2.0 %) 0 L Absolute Granulocytes (1.4 - 6.5 /CUMM) 16.2 H Absolute Lymphocytes (1.2 - 3.4 /CUMM) 0.4 L Absolute Monocytes (0.10 - 0.60 /CUMM) 0.7 H Absolute Eosinophils (0.0 - 0.7 /CUMM) 0.1 Absolute Basophils (0.0 - 0.2 /CUMM) 0 PUBS MCHC (33.0 - 37.0 G/DL) 33.5 Assessment/Plan Assessment/Plan I reviewed the US from this admission on PACS myself and shows mostly edema is imaged by the radiologist of a 9 mm area but it's flat it's not organized and it doesn't clearly correlate clinically. Impression is despite the temperatures and leukocytosis the patient is improving clinically I don't feel he has something that needs urgent incision and drainage right now maybe it's from antibiotics being modified, these types of things could worsen but is clearly improved I recommend discharging him home when his fever curve improves and follow-up in our surgical office. I urged him to stop smoking as it affects healing. Problem List: 1. Cellulitis Consult Acknowledgment - Thank you for your consult request.
[2016-07-04 21:10] VITALS: BP 140/60
[2016-07-05 06:53] VITALS: BP 122/70
[2016-07-05 08:07] LABS: ABSOLUTE BASOPHIL COUNT 0 /CUMM (0.0-0.2); ABSOLUTE EOSINOPHIL COUNT 0.3 /CUMM (0.0-0.7); ABSOLUTE GRANULOCYTE CT 9.6 /CUMM (1.4-6.5); ABSOLUTE LYMPH COUNT 0.6 /CUMM (1.2-3.4); ABSOLUTE MONOCYTE COUNT 0.6 /CUMM (0.10-0.60); BASOPHIL % 0.1 % (0.0-2.0); EOSINOPHIL % 2.8 % (0-5); GRANULOCYTE % 86.4 % (42.2-75.2); HEMATOCRIT 34.8 % (42-52); MEAN CORPUSCULAR HGB 28.7 PG (27.0-31.0); MEAN PLATELET VOLUME 8.9 FL (7.4-10.4); PLATELET COUNT 191 /CUMM (130-400); RBC DISTRIBUTION WIDTH 13.4 % (11.5-14.5)
[2016-07-05 09:20] LABS: WHITE BLOOD CELL COUNT 11.1 /CUMM (4.8-10.8)
--- NOTE | 2016-07-05 11:12 | PN- Housestaff ---
HELENA GORDON 07/05/16 1112: Subjective Follow-up For: cellulitis Subjective: Seen and examined patient, complains of itchness of skin and fevers. Denies stridor, difficulty breathing, chest pain. Endorses some itchness associated with percocet in the past. He did get penicillin in past and does not report any reactions to pencillin in that past. Review of Systems Constitutional: Reports: chills, fever, malaise. Cardiovascular: Denies: chest pain, edema, orthopena, palpitations, peripheral edema, syncope. Respiratory: Denies: cough, hemoptysis, orthopnea, short of breath, sputum production, stridor, wheezing. Gastrointestinal: Denies: abdominal pain, bloating, constipation, diarrhea, distention, bowel incontinence, melena, nausea, bloody stool, changes in stool, vomiting, steatorrhea. Objective Last 24 Hrs of Vital Signs/I&O Vital Signs Date Time Temp Pulse Resp B/P B/P Pulse O2 O2 Flow FiO2 Mean Ox Delivery Rate 07/05 1532 99.9 07/05 1511 97.7 82 20 112/82 98 Room Air 07/05 0653 98.9 70 18 122/70 94 Room Air 07/05 0414 98.5 07/05 0414 98.5 07/05 0327 100.7 07/05 0310 100.7 07/04 2110 99.0 79 20 140/60 96 Room Air 07/04 1911 100.4 07/04 1812 100.6 Intake & Output 07/05 1600 07/05 0800 07/05 0000 Intake Total 600 1290 1000 Output Total 1550 1700 Balance -950 1290 -700 Intake, IV 1050 Intake, Oral 807 833 5920 Number 0 Bowel Movements Output, Urine 1550 1700 Physical Exam General Appearance: Alert, Oriented X3, Cooperative, No Acute Distress Skin: blanchable maculopapular rash extending from b/l extremites upto lower part of trunk Cardiovascular: Normal S1, Normal S2 Extremities: Normal Pulses, No Tenderness/Swelling, no swelling palpable, erythema is extending how decreased redness noted Current Medications: Current Medications Sig/Rk Start time Last Medication Dose Route Stop Time Status Admin Acetaminophen 1,000 MG ONCE ONE 07/05 0330 DC 07/05 N/A 1 UNIT IV 04/26 0344 0327 Acetaminophen 650 MG .STK-MED ONE 07/04 1813 DC PO 07/04 1814 Acetaminophen 650 MG Q6P PRN 07/03 2030 AC 07/05 PO 1658 Ampicillin Sodium/ 3,000 MG Q6H 07/04 1000 AC 07/05 Sulbactam Sodium IV 1605 Sodium Chloride 100 ML Diphenhydramine HCl 50 MG Q4-6 PRN PRN 07/05 0900 AC 07/05 IV 0910 Diphenhydramine HCl 50 MG ONCE ONE 07/05 0830 DC PO 07/05 0831 Docusate Sodium 100 MG DAILY 07/05 1000 AC 07/05 PO 1257 Enoxaparin Sodium 40 MG DAILY 07/04 1000 AC 07/05 SC 1257 Ketorolac 30 MG Q6-PRN PRN 07/05 0900 AC Tromethamine IV Morphine Sulfate 3 MG Q4P PRN 07/05 0900 AC 07/05 IV 0908 Morphine Sulfate 2 MG Q4P PRN 07/03 2130 DC 07/04 IV 1555 Ondansetron HCl 4 MG Q6P PRN 07/05 0900 AC IV Oxycodone/ 1 TAB Q4P PRN 07/04 1200 DC 07/04 Acetaminophen PO 2112 Patient Medication 1 ED .STK-MED ONE 07/05 1410 DC Teaching ED 07/05 1411 Polyethylene Glycol 17 GM DAILY 07/05 1000 AC 07/05 PO 1258 Senna/Docusate Sodium 2 TAB DAILY 07/05 1000 AC 07/05 PO 1258 Sodium Chloride 1,000 ML Q10H 07/05 0900 AC 07/05 IV 0927 Sodium Chloride 1,000 ML Q10H 07/04 0800 DC 07/04 IV 07/05 0359 2244 Trimethobenzamide HCl 200 MG 4 TIMES/DAY PRN 07/04 0145 DC IM Last 24 Hrs of Lab/Eloy Results Last 24 Hrs of Labs/Mics: Laboratory Tests 07/05/16 0628: CBC w Diff NO MAN DIFF REQ, RBC 4.00 L, MCV 87.0, MCH 28.7, RDW 13.4, MPV 8.9, Gran % 86.4 H, Lymphocytes % 5.0 L, Monocytes % 5.7, Eosinophils % 2.8, Basophils % 0.1, Absolute Granulocytes 9.6 H, Absolute Lymphocytes 0.6 L, Absolute Monocytes 0.6, Absolute Eosinophils 0.3, Absolute Basophils 0, PUBS MCHC 33.0 Assessment/Plan Assessment: 31-year-old gentleman with past medical history significant for Lyme disease treated with 3 weeks doxycycline about 15 years ago present is a gentleman with redness and swelling in left lower extremity. In ER was found to have fever of 101.8 and white count of 17.6. 0.9 cm complex in the subcutaneous collection in the soft tissues overlying the mid tibia, most compatible with a small abscess. Attempted to drain in ER but was unsuccessful. Was given one dose of IV Unasyn and IV clindamycin in Ed. Given IV cefazolin and now on IV unasyn. Hospital day 2 Continues to be febrile (tmax of 100) with wbc trending down to 11.1. Vitals are stable. reports improvement in pain however continues to have malaise. Cultures growing beta group strep A Problem List: cellulitis/?abscess anaphylaxis Plan: continue on general medicine floor,vitals per protocol, monitor closely for signs and symptoms of sepsis will continue with IVF ID consulted, appreciate recommendations continue IV unasyn, does not report reaction to penicillin, his rash has improved with one dose of IV benadryl discontinue percocet and start toradol and IV morphine for break through pain Continue to trend WBC tommorrow Regular diet DVT prophylaxis with Lovenox Patient is full code Problem List: 1. Cellulitis Pain Ratin Pain Location: left leg Pain Goal: Pain 4 or less Pain Plan: discontinue percocet and start toradol and IV morphine for break through pain Tomorrow's Labs & Rationales: cbc JESUS MURPHY MD 07/05/16 1157: Attending MD Review Statement Attending Statement Attending MD Statement: examined this patient, discuss w/resident/PA/MANAGER SCHOOL, agreed w/resident/PA/MANAGER SCHOOL, reviewed EMR data (avail), discussed with nursing, discussed with case mgmt, reviewed images, amended to note Attending Assessment/Plan: The patient says that he didn't tolerate the Percocet he took yesterday and it gave him an itchy rash. He is pretty convinced that this is the Percocet as he says this has happened to him with Percocet before. We stopped the Percocet and are using Toradol and morphine for pain. I did explain my worry about the beta- lactamase antibiotics and the possibility of rash with that but he is convinced that he has taken penicillin before without any issues. The good news is that his white count has come down however he did have a fever spike of 102 yesterday and the left leg estrella area redness looks about the same. We'll call a formal ID consult today just to make sure that we are covering the spectrum of disease with beta hemolytic strep and that we don't need to add any additional coverage and will follow closely.
--- NOTE | 2016-07-05 14:35 | Cons- Infect Disease ---
General Information and HPI Consulting Request Date of Consult: 07/05/16 Requested By: JESUS MURPHY MD Reason for Consult: Left leg cellulitis Source of Information: patient History of Present Illness: This is a 31-year-old man with no significant past medical history admitted on July 03 after he presented to the emergency room with a one-day history of pain , erythema and edema over the anterior aspect of his left leg associated with fevers, chills and myalgias with no definite trauma. On admission he was febrile to 101.8. Laboratory data revealed a white blood cell count of 18,000, BUN/creatinine 11 and 0.8, with normal liver enzymes. X-ray of the left tibia/ fibula revealed nonspecific soft tissue swelling with no evidence of osteomyelitis. An ultrasound of the left leg revealed a 0.9 cm complex in the subcutaneous tissues overlying the mid tibia. An I&D was attempted in the ER but was unsuccessful, though a culture was submitted. He was given a dose of Clindamycin and Cefazolin and was then placed on Unasyn. He initially remained febrile with a persistent leukocytosis but he appears to have defervesced and his white blood cell count has decreased today. He does note improvement with decreased pain and swelling but his erythema has progressed. This morning he apparently developed a pruritic rash, which he attributed to Percocet, and which appears to have improved. 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 Home Who Do You Live With? self Smoking Status: Never Smoked ETOH Use: denies use Illicit Drug Use: marijuana Functional Ability ADLs Independent: dressing, eating, toileting, bathing. Ambulation: independent IADLs Independent: shopping, housework, finances, food prep, telephone, transportation , medication admin. Review of Systems Review of Systems All Other Systems: Reviewed and Negative Exam & Diagnostic Data Last 24 Hrs of Vital Signs/I&O Vital Signs Date Time Temp Pulse Resp B/P B/P Pulse O2 O2 Flow FiO2 Mean Ox Delivery Rate 07/05 0653 98.9 70 18 122/70 94 Room Air 07/05 0414 98.5 07/05 0414 98.5 07/05 0327 100.7 07/05 0310 100.7 07/04 2110 99.0 79 20 140/60 96 Room Air 07/04 1911 100.4 07/04 1812 100.6 07/04 1444 100.8 95 20 126/60 96 Room Air Intake & Output 07/05 1600 07/05 0800 07/05 0000 Intake Total 1290 1000 Output Total 1700 Balance 1290 -700 Intake, IV 1050 Intake, Oral 240 1000 Number 0 Bowel Movements Output, Urine 1700 Physical Exam Other Physical Findings: He is awake and alert in no acute distress. MAXIMUM TEMPERATURE 102.4. Skin reveals no definite rash. HEENT exam is negative. Neck is supple with no adenopathy. Lungs are clear. Heart regular rhythm with no murmur. Abdomen is soft, nontender with positive bowel sounds. Back no CVA tenderness. Extremities erythema and edema over the anterior aspect of his left tibial area, minimally tender to palpation, with an eschar in the center. Neuro is without focality. Last 24 Hours of Lab Results: Laboratory Tests 07/06 627 Hematology CBC w Diff NO MAN DIFF REQ WBC (4.8 - 10.8 /CUMM) 11.1 H RBC (4.70 - 6.10 /CUMM) 4.00 L Hgb (14.0 - 18.0 G/DL) 11.5 L Hct (42 - 52 %) 34.8 L MCV (80.0 - 94.0 FL) 87.0 MCH (27.0 - 31.0 PG) 28.7 RDW (11.5 - 14.5 %) 13.4 Plt Count (130 - 400 /CUMM) 191 MPV (7.4 - 10.4 FL) 8.9 Gran % (42.2 - 75.2 %) 86.4 H Lymphocytes % (20.5 - 51.1 %) 5.0 L Monocytes % (1.7 - 9.3 %) 5.7 Eosinophils % (0 - 5 %) 2.8 Basophils % (0.0 - 2.0 %) 0.1 Absolute Granulocytes (1.4 - 6.5 /CUMM) 9.6 H Absolute Lymphocytes (1.2 - 3.4 /CUMM) 0.6 L Absolute Monocytes (0.10 - 0.60 /CUMM) 0.6 Absolute Eosinophils (0.0 - 0.7 /CUMM) 0.3 Absolute Basophils (0.0 - 0.2 /CUMM) 0 PUBS MCHC (33.0 - 37.0 G/DL) 33.0 Last 24 Hours of [place] Results: Blood cultures 2 July 03 negative "Deep" culture of the left leg wound July 03 mixed erika with moderate growth of Group A strep Diagnostic Data Recent Imaging Findings: X-ray of the left tibia/fibula July 03 revealed nonspecific soft tissue swelling with no evidence of osteomyelitis. An ultrasound of the left leg July 03 revealed a small focal area of ill- defined hypoechoic material in the subcutaneous soft tissues, measuring 0.9 x .5 x 0.9 cm Assessment/Plan Assessment/Plan Impression: This is a 31-year-old man with no significant past medical history admitted on July 03 with a one-day history of pain, erythema and edema over the anterior aspect of his left leg with no obvious trauma, found to be febrile with a leukocytosis, treated for cellulitis, with overall improvement and with a culture obtained after an attempt at I&D of the left leg wound positive for Group A strep. The etiology of his wound is unclear, but he presumably had some incidental trauma. His clinical picture is consistent with a cellulitis, with Group A strep the most likely pathogen. The ultrasound did suggest a small collection, but this was not felt to be amenable to drainage. He appears to be improving, though his erythema has increased, and, if it continues to increase, re-imaging may be necessary to rule out an increasing, drainable collection. Suggestion: 1. Elevation of the left leg 2. Follow-up final culture 3. Consider repeat imaging, for example with ultrasound, if erythema progresses or fevers recur 4. Continue Unasyn, with eventual change to Augmentin 875 mg po every 12 hours to complete a 7-10 day course Cinda Pride MD will be covering me until July 11 Consult Acknowledgment - Thank you for your consult request.
[2016-07-05 15:11] VITALS: BP 112/82
--- NOTE | 2016-07-05 15:17 | PN- Student ---
Subjective Subjective: CC: "feeling chills" Pt is a 31yo male who is seen on IP Day#3 for cellulitis on the anterior lower left leg. Pt was seen lying in bed, resting, NAD. Pt states he feels chills. Endorsed itching around the area of inflammation. Pt states he became itchy overnight after taking Percocet. Per pt, he has had a similar reaction to percocet in the past. Pt states he did not report itching for fear of being denied pain meds. Denies pain today. Denies chest pain/SOB. Denies abd pain/ nausea/vomiting/diarrhea. Denies dysuria. Objective Objective: IP Day #3 for 31yo male being treated for GAS culture positive cellulitis. Max temp today 101.1F. Today area of erythema and edema extending beyond the margins drawn yesterday. Pt states itching in the area of inflammation only. Physical Exam: Vital Signs Date Time Temp Pulse Resp B/P B/P Pulse O2 O2 Flow FiO2 Mean Ox Delivery Rate 07/05 1757 99.7 07/05 1757 99.7 07/05 1658 101.1 07/05 1656 101.1 07/05 1532 99.9 07/05 1511 97.7 82 20 112/82 98 Room Air 07/05 0653 98.9 70 18 122/70 94 Room Air 07/05 0414 98.5 07/05 0414 98.5 07/05 0327 100.7 07/05 0310 100.7 07/04 2110 99.0 79 20 140/60 96 Room Air 07/04 1911 100.4 Gen: 31yo male, resting in bed, NAD CV: S1S2, RRR, no murmurs/rubs/gallops Pulm: CTABL, no wheezing/rales/rhonchi/crackles Abd: flat, ND, quiet abdomen, NT to palpation Skin: diffuse, blanching, maculopapular rash on trunk and extremities, no facial edema Ext: [id number] area of erythema and edema with central eschar from previous I&D attempt in ED. Area of edema and erythema has extended beyond the margins circled the prior day. Warm to touch. New borders traced and dated with surgical marking pen. Neuro: AAOx4, CNII-XII grossly intact Results Results: Laboratory Tests 07/05/16 0628: CBC w Diff NO MAN DIFF REQ, RBC 4.00 L, MCV 87.0, MCH 28.7, RDW 13.4, MPV 8.9, Gran % 86.4 H, Lymphocytes % 5.0 L, Monocytes % 5.7, Eosinophils % 2.8, Basophils % 0.1, Absolute Granulocytes 9.6 H, Absolute Lymphocytes 0.6 L, Absolute Monocytes 0.6, Absolute Eosinophils 0.3, Absolute Basophils 0, PUBS MCHC 33.0 07/04/16 0618: CBC w Diff NO MAN DIFF REQ, RBC 4.12 L, MCV 87.0, MCH 29.2, RDW 13.7, MPV 8.9, Gran % 93.6 H, Lymphocytes % 2.1 L, Monocytes % 3.9, Eosinophils % 0.4, Basophils % 0 L, Absolute Granulocytes 16.2 H, Absolute Lymphocytes 0.4 L, Absolute Monocytes 0.7 H, Absolute Eosinophils 0.1, Absolute Basophils 0, PUBS MCHC 33.5 07/03/16 1642: Lactic Acid 0.8 07/03/16 1422: Anion Gap 13, Estimated GFR > 60, BUN/Creatinine Ratio 13.8, Glucose 110 H, Lactic Acid 1.3, Calcium 9.6, Total Bilirubin 1.0, AST 30, ALT 35, Alkaline Phosphatase 58, Total Protein 7.5, Albumin 4.6, Globulin 2.9, Albumin/Globulin Ratio 1.6, CBC w Diff MAN DIFF ORDERED, RBC 4.76, MCV 86.0, MCH 29.0, RDW 13.5, MPV 8.1, Gran % 94.1 H, Lymphocytes % 2.9 L, Monocytes % 2.8, Eosinophils % 0.2, Basophils % 0 L, Absolute Granulocytes 16.6 H, Segmented Neutrophils 87 H, Band Neutrophils 2, Absolute Lymphocytes 0.5 L, Lymphocytes 6 L, Monocytes 3, Absolute Monocytes 0.5, Eosinophils 1, Absolute Eosinophils 0, Basophils 1, Absolute Basophils 0, Platelet Estimate ADEQUATE, Normocytic RBCs VERIFIED, Normochromic RBCs VERIFIED, PUBS MCHC 33.7 Microbiology 07/03 163 EXTREMITIE: Culture & Sensitivity - RES BETA STREP GROUP A 07/04 1635 EXTREMITIE: Gram Stain - RES 07/03 1422 BLOOD: Blood Culture - RES 07/03 1400 BLOOD: Blood Culture - RES Assessment/Plan Assessment: IP Day #3 for 31yo male with no significant PHM being treated IP for cellulitis on the anterior lower left leg. Plan: #1 Cellulitis: Pt is being treated for cellulitis which was cultured and grew GAS and unspecified mixed erika. He is currently being treated with Unasyn to cover GAS. 48hrs after presentation to the ED, he is febrile and reporting chills. U/S in ED showed hypoechoic region/complex fluid, but no discrete collection. Surgery consulted yesterday and no I&D at that time. An abscess which is still organizing could cause his temerature to remain elevated even with abx on board. Pt is currently hemodynamically stable. -manage pain PRN -monitor for signs of sepsis -monitor for worsening signs of infection -monitor site of cellulitis infection for increased margins, purulence, pain, erythema -repeat CBC -f/u Surgery -f/u ID #2 Rash/Drug Reaction: Pt has a diffuse, blanching, maculopapular rash on the trunk and extremities without facial edema. Pt denies trouble swallowing/SOB. Based on pt report of previous reaction to Percocet it was discontinued today. This reaction is likely due to the oxycodone in the Percocet as he is tolerating acetaminophen. Benadryl given for allergic rash. Another possible cause of drug reaction is Unasyn which contains ampicillin and sublactam. Beta lactam abx can frequently cause morbilliform skin reactions most commonly, but these are seen 1wk post administration. After stopping Percocet and administering Benadryl, rash is improved and pt denies itching. -continue to monitor rash -recheck tomorrow -Benadryl PRN for allergic reaction -Morphine PRN for pain
[2016-07-05 21:04] VITALS: BP 124/80
[2016-07-06 06:27] VITALS: BP 116/66
[2016-07-06 08:47] LABS: ABSOLUTE BASOPHIL COUNT 0 /CUMM (0.0-0.2); ABSOLUTE EOSINOPHIL COUNT 0.4 /CUMM (0.0-0.7); ABSOLUTE GRANULOCYTE CT 9.3 /CUMM (1.4-6.5); ABSOLUTE LYMPH COUNT 1.1 /CUMM (1.2-3.4); BASOPHIL % 0.2 % (0.0-2.0); EOSINOPHIL % 3.6 % (0-5); HEMATOCRIT 35.7 % (42-52); MEAN CORPUSCULAR HGB 28.6 PG (27.0-31.0); MEAN CORPUSCULAR HGB CONC 33.3 G/DL (33.0-37.0); MEAN CORPUSCULAR VOLUME 85.9 FL (80.0-94.0); MEAN PLATELET VOLUME 8.9 FL (7.4-10.4); PLATELET COUNT 229 /CUMM (130-400); RBC DISTRIBUTION WIDTH 13.2 % (11.5-14.5); RED BLOOD CELL CT 4.15 /CUMM (4.70-6.10); WHITE BLOOD CELL COUNT 11.8 /CUMM (4.8-10.8)
--- NOTE | 2016-07-06 12:46 | PN- Housestaff ---
HELENA GORDON 07/06/16 1246: Subjective Follow-up For: cellulitis Subjective: Seen and examined patient, states he feels better today, he is concerned that his redness has not completely disappeared. Review of Systems Constitutional: Denies: chills, diaphoresis, fever, malaise, weakness, unexplained weight loss. Cardiovascular: Denies: chest pain, edema, orthopena, palpitations, peripheral edema, syncope. Respiratory: Denies: cough, hemoptysis, orthopnea, short of breath, sputum production, stridor, wheezing. Objective Last 24 Hrs of Vital Signs/I&O Vital Signs Date Time Temp Pulse Resp B/P B/P Pulse O2 O2 Flow FiO2 Mean Ox Delivery Rate 07/06 1426 98.9 64 18 124/70 96 Room Air 07/06 0627 98.9 65 18 116/66 97 Room Air 07/05 2104 99.0 75 24 124/80 95 Room Air 07/05 1757 99.7 07/05 1757 99.7 07/05 1658 101.1 07/05 1656 101.1 07/05 1532 99.9 07/05 1511 97.7 82 20 112/82 98 Room Air Intake & Output 07/06 1600 07/06 0800 07/06 0000 Intake Total 1240 1340 Output Total 1750 Balance 1240 -410 Intake, IV 1000 300 Intake, Oral 240 1040 Output, Urine 1750 Physical Exam General Appearance: Alert, Oriented X3, frustrated Skin: some improved of erythema noted with some mild swelling Cardiovascular: Regular Rate, Normal S1, Normal S2 Lungs: Clear to Auscultation, Normal Air Movement Abdomen: Normal Bowel Sounds, Soft, No Tenderness Current Medications: Current Medications Sig/Rk Start time Last Medication Dose Route Stop Time Status Admin Acetaminophen 650 MG .STK-MED ONE 07/05 1659 DC PO 07/05 1700 Acetaminophen 650 MG Q6P PRN 07/03 2030 AC 07/05 PO 1658 Ampicillin Sodium/ 3,000 MG Q6H 07/04 1000 AC 07/06 Sulbactam Sodium IV 1102 Sodium Chloride 100 ML Diphenhydramine HCl 50 MG Q4-6 PRN PRN 07/05 0900 AC 07/05 IV 0910 Docusate Sodium 100 MG DAILY 07/05 1000 AC 07/06 PO 1103 Enoxaparin Sodium 40 MG DAILY 07/04 1000 AC 07/06 SC 1104 Ketorolac 30 MG Q6-PRN PRN 07/05 0900 AC 07/06 Tromethamine IV 0731 Lidocaine 1 ML .STK-MED ONE 07/06 1114 DC ID 07/06 1115 Morphine Sulfate 3 MG Q4P PRN 07/05 0900 AC 07/06 IV 1134 Ondansetron HCl 4 MG Q6P PRN 07/05 0900 AC IV Polyethylene Glycol 17 GM DAILY 07/05 1000 AC 07/06 PO 1105 Senna/Docusate Sodium 2 TAB DAILY 07/05 1000 AC 07/06 PO 1105 Sodium Chloride 1,000 ML Q10H 07/05 0900 DC 07/06 IV 0457 Last 24 Hrs of Lab/[place] Results Last 24 Hrs of Labs/Mics: Laboratory Tests 07/06/16 0644: CBC w Diff NO MAN DIFF REQ, RBC 4.15 L, MCV 85.9, MCH 28.6, RDW 13.2, MPV 8.9, Gran % 79.0 H, Lymphocytes % 8.9 L, Monocytes % 8.3, Eosinophils % 3.6, Basophils % 0.2, Absolute Granulocytes 9.3 H, Absolute Lymphocytes 1.1 L, Absolute Monocytes 1.0 H, Absolute Eosinophils 0.4, Absolute Basophils 0, PUBS MCHC 33.3 Microbiology 07/06 1040 BODY FLUID: Body Fluid Culture - CAN Cancelled: ENTER ERROR 07/06 1040 BODY FLUID: Gram Stain - CAN Cancelled: ENTER ERROR 07/06 0848 EXTREMITIE: Gross Specimen Examination - RES 07/07 847 EXTREMITIE: Gram Stain - RES 07/07 0748 BODY FLUID: Body Fluid Culture - CAN Cancelled: ENTRY ERROR BY OR. 07/07 847 BODY FLUID: Gram Stain - CAN Cancelled: ENTRY ERROR BY OR. Assessment/Plan Assessment: 31-year-old gentleman with past medical history significant for Lyme disease treated with 3 weeks doxycycline about 15 years ago present is a gentleman with redness and swelling in left lower extremity. In ER was found to have fever of 101.8 and white count of 17.6. 0.9 cm complex in the subcutaneous collection in the soft tissues overlying the mid tibia, most compatible with a small abscess. Attempted to drain in ER but was unsuccessful. Was given one dose of IV Unasyn and IV clindamycin in Ed. Given IV cefazolin and now on IV unasyn. Hospital day 3 Tmax of 98.9 with wbc staying at 11.1. Vitals are stable. He is visibly more frustrated today. Was cooperative with examination. Problem List: cellulitis/?abscess anaphylaxis-resolved Plan: continue on general medicine floor,vitals per protocol, monitor closely for signs and symptoms of sepsis will dc IVF ID consulted, appreciate recommendations will get US giuded aspiration of abcess and send for culture continue IV unasyn, does not report reaction to penicillin, his rash has improved with one dose of discontinue percocet and start toradol and IV morphine for break through pain Regular diet DVT prophylaxis with Lovenox Patient is full code Problem List: 1. Cellulitis Pain Ratin Pain Location: leg Pain Goal: Pain 4 or less Pain Plan: current regimen Tomorrow's Labs & Rationales: cbc JESUS MURPHY MD 07/06/16 1541: Attending MD Review Statement Attending Statement Attending MD Statement: examined this patient, discuss w/resident/PA/BI APPLICATION DEVELOPER, agreed w/resident/PA/BI APPLICATION DEVELOPER, reviewed EMR data (avail), discussed with nursing, discussed with case mgmt, reviewed images Attending Assessment/Plan: Patient spiked again yesterday at 4 PM to 101. Given that his fluid collection looks slightly more organized we sent him down and the interventional radiologist Dr. Kamara got about 0.5 mL of cloudy fluid that was sent for Gram stain and culture. We'll keep him on the IV Unasyn today and follow that Gram stain and culture closely. If he remains afebrile overnight I think we can safely discharge him on by mouth Augmentin in the morning. Off note later in the day apparently he had an outburst after talking to his father. I went in and spoke to him and he has a lot of unresolved anger issues with his father and the general family situation.
[2016-07-06 14:26] VITALS: BP 124/70
--- NOTE | 2016-07-06 14:26 | PN- Student ---
Subjective Subjective: IP Day #3 for a 31yo male being treated for cellulitis on the anterior left leg which was positive for group A strep. Pt was seen this morning standing next to the bed. Pt states he is feeling better today. No overnight events after Tm 101.1 yesterday evening. Denies fever/chills. Denies pain in the leg. Denies chest pain/SOB. Denies abdominal pain/nausea/vomiting. +BM, denies blood or mucus in stool. Objective Objective: Vital Signs Date Time Temp Pulse Resp B/P B/P Pulse O2 O2 Flow FiO2 Mean Ox Delivery Rate 07/06 1426 98.9 64 18 124/70 96 Room Air 07/06 0627 98.9 65 18 116/66 97 Room Air 07/05 2104 99.0 75 24 124/80 95 Room Air 07/05 1757 99.7 07/05 1757 99.7 07/05 1658 101.1 07/05 1656 101.1 07/05 1532 99.9 07/05 1511 97.7 82 20 112/82 98 Room Air Physical Exam: Gen: young man, long hair and higuera, standing next to bed, NAD CV: S1S2, RRR, no murmurs/rubs/gallops Lungs: CTABL, no wheezing/rales/crackles/rhonchi Abd: flat, ND, +bowel sounds, nontender Ext: no peripheral edema Skin: site of infection on the left anterior leg, erythema slightly improved around the periphery, however, erythema extends slightly beyond the margins along the lower medial and upper lateral aspects of a large oval area ([id number]). Central edema increased since yesterday. Warm, well-perfused, no lesions/ rashes. MSK: Pt is able to bear weight on left leg, denies pain Neuro: AAOx3, broad affect, expressing unhappiness about being in the hospital for so long Results Results: Laboratory Tests 07/06/16 0644: CBC w Diff NO MAN DIFF REQ, RBC 4.15 L, MCV 85.9, MCH 28.6, RDW 13.2, MPV 8.9, Gran % 79.0 H, Lymphocytes % 8.9 L, Monocytes % 8.3, Eosinophils % 3.6, Basophils % 0.2, Absolute Granulocytes 9.3 H, Absolute Lymphocytes 1.1 L, Absolute Monocytes 1.0 H, Absolute Eosinophils 0.4, Absolute Basophils 0, [facility] 33.3 07/05/16 0628: CBC w Diff NO MAN DIFF REQ, RBC 4.00 L, MCV 87.0, MCH 28.7, RDW 13.4, MPV 8.9, Gran % 86.4 H, Lymphocytes % 5.0 L, Monocytes % 5.7, Eosinophils % 2.8, Basophils % 0.1, Absolute Granulocytes 9.6 H, Absolute Lymphocytes 0.6 L, Absolute Monocytes 0.6, Absolute Eosinophils 0.3, Absolute Basophils 0, [facility] 33.0 07/04/16 0618: CBC w Diff NO MAN DIFF REQ, RBC 4.12 L, MCV 87.0, MCH 29.2, RDW 13.7, MPV 8.9, Gran % 93.6 H, Lymphocytes % 2.1 L, Monocytes % 3.9, Eosinophils % 0.4, Basophils % 0 L, Absolute Granulocytes 16.2 H, Absolute Lymphocytes 0.4 L, Absolute Monocytes 0.7 H, Absolute Eosinophils 0.1, Absolute Basophils 0, [facility] 33.5 07/03/16 1642: Lactic Acid 0.8 07/03/16 1422: Anion Gap 13, Estimated GFR > 60, BUN/Creatinine Ratio 13.8, Glucose 110 H, Lactic Acid 1.3, Calcium 9.6, Total Bilirubin 1.0, AST 30, ALT 35, Alkaline Phosphatase 58, Total Protein 7.5, Albumin 4.6, Globulin 2.9, Albumin/Globulin Ratio 1.6, CBC w Diff MAN DIFF ORDERED, RBC 4.76, MCV 86.0, MCH 29.0, RDW 13.5, MPV 8.1, Gran % 94.1 H, Lymphocytes % 2.9 L, Monocytes % 2.8, Eosinophils % 0.2, Basophils % 0 L, Absolute Granulocytes 16.6 H, Segmented Neutrophils 87 H, Band Neutrophils 2, Absolute Lymphocytes 0.5 L, Lymphocytes 6 L, Monocytes 3, Absolute Monocytes 0.5, Eosinophils 1, Absolute Eosinophils 0, Basophils 1, Absolute Basophils 0, Platelet Estimate ADEQUATE, Normocytic RBCs VERIFIED, Normochromic RBCs VERIFIED, [facility] 33.7 Microbiology 07/06 1040 BODY FLUID: Body Fluid Culture - CAN Cancelled: ENTER ERROR 04/27 1040 BODY FLUID: Gram Stain - CAN Cancelled: ENTER ERROR 07/06 0848 EXTREMITIE: Gross Specimen Examination - RECD 07/06 0848 EXTREMITIE: Gram Stain - RECD 07/06 0848 BODY FLUID: Body Fluid Culture - CAN Cancelled: ENTRY ERROR BY OR. 07/06 0848 BODY FLUID: Gram Stain - CAN Cancelled: ENTRY ERROR BY OR. 07/03 1636 EXTREMITIE: Culture & Sensitivity - RES BETA STREP GROUP A 07/03 1636 EXTREMITIE: Gram Stain - RES 07/03 1422 BLOOD: Blood Culture - RES Assessment/Plan Assessment: IP Day#3 for 31yo male being treated for cellulitis with culture positive group A streptococcus. Pt has been treated with IV Unasyn for over 48 hours. Unasyn ( ampicillin/sulbactam) is appropriate coverage for GAS. The rash he had yesterday from suspected Percocet drug reaction has resolved today. Today he is afebrile, and the margins of erythma have grown 1-2cm outside the borders traced yesterday in two places, however, there is some improvement to erythema within the margins. Pt's WBC are 11.8, up slightly from yesterday 11.1. There was concern that a collection was organizing under the central area of edema. Pt was taken to IR today and had 1-2cc cloudy, serosanginous fluid drained and sent for cultures. Spoke to Micro Dept regarding the "few Gram+ cocci" seen in aspirate. Culture is plated, will follow-up to confirm organism. As there is only a small area of fluid and not a clear abscess, it's expected to see clinical improvement over the next 12-24 hours of continued IV Unasyn. Plan: -continue Unasyn IV -CBC tomorrow to follow WBC -monitor for worsening signs of infection -monitor margins tomorrow -follow aspirate cultures -continue morphine/toradol for pain, PRN -bowel regimen -regular diet as tolerated -if pt remains afebrile, DC home on PO Augmentin
--- NOTE | 2016-07-06 15:17 | ULTRASOUND REPORT ---
PROCEDURE: US GUIDED ASPIRATION LEFT ESTRELLA CLINICAL INFORMATION: 31-year-old male with worsening left estrella cellulitis. Small abscess noted on ultrasound imaging 3 days ago. Aspiration requested. COMPARISON: Superficial ultrasound 07/03/2016 INTERVENTIONAL RADIOLOGIST: Neptali Kamara M.D. TECHNIQUE: Informed consent was obtained from the patient was obtained prior to the procedure. During this process, the procedure and potential alternatives were explained along with the intended outcome and benefits. The risks of the procedure including the possibility of an unsuccessful procedure, as well as the risk of not doing the procedure were discussed. The patient was given the opportunity to ask questions regarding the procedure and competent to make decisions. A signed consent form which documents this discussion was placed in the medical record. Following informed consent, the patient was placed supine on the procedure table. Diagnostic imaging was performed of the left estrella which demonstrated diffuse subcutaneous edema. Previously visualized 9 mm subcutaneous collection today measured 5 mm. The skin was marked and then prepped and draped in usual sterile fashion. Under direct sonographic guidance, a 20-gauge spinal needle was advanced into the 5 mm subcutaneous collection. Approximately 1 mL of thin, cloudy fluid was aspirated. There is complete collapse of the subcutaneous collection. Several other adjacent 2 to 3 mm hypoechoic foci were targeted, however, only an additional 0.5 mL could be aspirated. The needle was removed and pressure held for approximately 5 minutes until hemostasis was achieved. A sterile dressing was placed. Sample sent for requested analysis. Findings: 5 mm subcutaneous collection with complete interval reduction status post ultrasound-guided aspiration. Impression: Successful ultrasound-guided aspiration of 5 mm subcutaneous collection.
--- NOTE | 2016-07-06 18:50 | PN- Infect Dx ---
Subjective Subjective: No fever. L leg redness. Review of Systems Comments: 12 points reviewed as noted, otherwise negative. Objective Last 24 Hrs of Vital Signs/I&O Vital Signs Date Time Temp Pulse Resp B/P B/P Pulse O2 O2 Flow FiO2 Mean Ox Delivery Rate 07/06 1426 98.9 64 18 124/70 96 Room Air 07/06 0627 98.9 65 18 116/66 97 Room Air 07/05 2104 99.0 75 24 124/80 95 Room Air Intake & Output 07/06 1600 07/06 0800 07/06 0000 Intake Total 1300 1240 1340 Output Total 1750 Balance 1300 1240 -410 Intake, IV 300 1000 300 Intake, Oral 0909 074 2547 Output, Urine 1750 Physical Exam Other Physical Findings: General Appearance: Alert, Oriented X3, frustrated Skin: some improved of erythema noted with some mild swelling Cardiovascular: Regular Rate, Normal S1, Normal S2 Lungs: Clear to Auscultation, Normal Air Movement Abdomen: Normal Bowel Sounds, Soft, No Tenderness Back no CVA tenderness. Extremities erythema and edema over the anterior aspect of his left tibial area, minimally tender to palpation Neuro is without focality. Results Last 24 Hours of Lab Results: Laboratory Tests 07/06 0644 Hematology CBC w Diff NO MAN DIFF REQ WBC (4.8 - 10.8 /CUMM) 11.8 H RBC (4.70 - 6.10 /CUMM) 4.15 L Hgb (14.0 - 18.0 G/DL) 11.9 L Hct (42 - 52 %) 35.7 L MCV (80.0 - 94.0 FL) 85.9 MCH (27.0 - 31.0 PG) 28.6 RDW (11.5 - 14.5 %) 13.2 Plt Count (130 - 400 /CUMM) 229 MPV (7.4 - 10.4 FL) 8.9 Gran % (42.2 - 75.2 %) 79.0 H Lymphocytes % (20.5 - 51.1 %) 8.9 L Monocytes % (1.7 - 9.3 %) 8.3 Eosinophils % (0 - 5 %) 3.6 Basophils % (0.0 - 2.0 %) 0.2 Absolute Granulocytes (1.4 - 6.5 /CUMM) 9.3 H Absolute Lymphocytes (1.2 - 3.4 /CUMM) 1.1 L Absolute Monocytes (0.10 - 0.60 /CUMM) 1.0 H Absolute Eosinophils (0.0 - 0.7 /CUMM) 0.4 Absolute Basophils (0.0 - 0.2 /CUMM) 0 PUBS MCHC (33.0 - 37.0 G/DL) 33.3 Last 24 Hours of [place] Results: SPEC #: [id number] RADHA: 07/03/16 STATUS: COMP RECD: 07/03/[address]: AUDEI DORADO SOURCE: EXTREMITIE ENTR: 07/03/[address]: PATIENT HAS NO PRIMARY CARE DR SPDESC: LEG L LOWR ORDERED: XTRM CULT COMMENT: TYPE OF SPECIMEN: DEEP Procedure Result > GRAM STAIN Final 07/04/16-1255 WHITE BLOOD CELLS FEW GRAM POSITIVE COCCI RARE > EXTREMITIES CULTURE Final 07/06/16-1523 Mixed erika after 2 days with Moderate growth of: BETA STREP GROUP A Penicillin and Ampicillin are drugs of choice for beta-hemolytic streptococcal infections. Susceptibility testing of penicillins and other beta-lactams are not routinely performed because non-susceptible isolates have only rarely been reported. Note: If patient is allergic to Penicillin, the laboratory can perform Clindamycin testing upon request. Please call within 5 days of final report. Called to/Readback by WILBERTO PEREIRA 07/04/16 1015 Recent Imaging Studies: SERVICE DATE: 07/03/16-1350 EXAM TYPE: RAD - [id number], LEFT EXAMINATION: XR TIBIA AND FIBULA, LEFT CLINICAL INFORMATION: 31-year-old male presented with erythema, swelling, fever, over the left tibial region, suspected osteomyelitis. COMPARISON: None. TECHNIQUE: AP and lateral views of the left tibia and fibula were obtained. Total of 4 images. FINDINGS: Soft tissue swelling is noted along the proximal to mid anterior aspect of the left tibia without any soft tissue gas formation or any underlying cortical destruction or periosteal reaction or any radiopaque foreign body. Specifically, the underlying tibia as well as the fibula appear intact without any focal osseous abnormality or periosteal reaction. IMPRESSION: Nonspecific soft tissue swelling is noted along the proximal to mid anterior part of the left leg without any underlying radiographic evidence of osteomyelitis. DICTATED BY: JW BAZAN MD DATE/TIME DICTATED:07/03/161438 COIL MACHINE SUPERVISOR:JOHN DATE/TIME TRANSCRIBED:07/03/161438 CONFIDENTIAL, DO NOT COPY WITHOUT APPROPRIATE AUTHORIZATION. <Electronically signed in Other Vendor System> SIGNED BY: JW BAZAN MD 07/03/16 1448 EXAM TYPE: US - US-CYST ASPIRAT. ULTRASOUND PROCEDURE: US GUIDED ASPIRATION LEFT ESTRELLA CLINICAL INFORMATION: 31-year-old male with worsening left estrella cellulitis. Small abscess noted on ultrasound imaging 3 days ago. Aspiration requested. COMPARISON: Superficial ultrasound 07/03/2016 INTERVENTIONAL RADIOLOGIST: Sharri Kamara M.D. TECHNIQUE: Informed consent was obtained from the patient was obtained prior to the procedure. During this process, the procedure and potential alternatives were explained along with the intended outcome and benefits. The risks of the procedure including the possibility of an unsuccessful procedure, as well as the risk of not doing the procedure were discussed. The patient was given the opportunity to ask questions regarding the procedure and competent to make decisions. A signed consent form which documents this discussion was placed in the medical record. Following informed consent, the patient was placed supine on the procedure table. Diagnostic imaging was performed of the left estrella which demonstrated diffuse subcutaneous edema. Previously visualized 9 mm subcutaneous collection today measured 5 mm. The skin was marked and then prepped and draped in usual sterile fashion. Under direct sonographic guidance, a 20-gauge spinal needle was advanced into the 5 mm subcutaneous collection. Approximately 1 mL of thin, cloudy fluid was aspirated. There is complete collapse of the subcutaneous collection. Several other adjacent 2 to 3 mm hypoechoic foci were targeted, however, only an additional 0.5 mL could be aspirated. The needle was removed and pressure held for approximately 5 minutes until hemostasis was achieved. A sterile dressing was placed. Sample sent for requested analysis. Findings: 5 mm subcutaneous collection with complete interval reduction status post ultrasound-guided aspiration. Impression: Successful ultrasound-guided aspiration of 5 mm subcutaneous collection. DICTATED BY: SHARRI KAMARA MD DATE/TIME DICTATED:07/06/161507 COIL MACHINE SUPERVISOR:JOHN DATE/TIME TRANSCRIBED:07/06/161507 CONFIDENTIAL, DO NOT COPY WITHOUT APPROPRIATE AUTHORIZATION. <Electronically signed in Other Vendor System> SIGNED BY: SHARRI KAMARA MD 07/06/16 1517 Assessment/Plan Impression: 31-year-old man with no significant past medical history admitted on July 03 with a one-day history of pain, erythema and edema over the anterior aspect of his left leg with no obvious trauma, found to be febrile with a leukocytosis, treated for cellulitis, and with a culture obtained after an attempt at I&D of the left leg wound positive for Group A strep. The etiology of his wound is unclear, but he presumably had some incidental trauma. His clinical picture is consistent with a cellulitis, with Group A strep the most likely pathogen. The ultrasound did suggest a small collection s/p drainage. Suggestion: 1. Elevation of the left leg. 2. Continue Unasyn 3 gm q 6 h while IP; with eventual change to Augmentin 875 mg po every 12 hours to complete 10-14 day course 3. Continue to trend CBC.
[2016-07-06 23:19] VITALS: BP 118/70
[2016-07-07 07:03] LABS: ABSOLUTE BASOPHIL COUNT 0 /CUMM (0.0-0.2); ABSOLUTE EOSINOPHIL COUNT 0.4 /CUMM (0.0-0.7); ABSOLUTE GRANULOCYTE CT 3.3 /CUMM (1.4-6.5); ABSOLUTE LYMPH COUNT 1.4 /CUMM (1.2-3.4); ABSOLUTE MONOCYTE COUNT 0.7 /CUMM (0.10-0.60); BASOPHIL % 0.4 % (0.0-2.0); EOSINOPHIL % 6.1 % (0-5); GRANULOCYTE % 56.8 % (42.2-75.2); MEAN CORPUSCULAR HGB 28.8 PG (27.0-31.0); MEAN CORPUSCULAR HGB CONC 33.9 G/DL (33.0-37.0); MEAN PLATELET VOLUME 8.4 FL (7.4-10.4); PLATELET COUNT 256 /CUMM (130-400); RBC DISTRIBUTION WIDTH 13.3 % (11.5-14.5)
[2016-07-07 07:19] LABS: WHITE BLOOD CELL COUNT 5.8 /CUMM (4.8-10.8)
--- NOTE | 2016-07-07 07:29 | Patient Discharge Instructions ---
Discharge Instructions General Discharge Information You were seen/treated for: cellulitis You had these procedures: incision and drainage of abcess Special Instructions: please follow up with your primary care physician Dr. Kenji lance on July 19 at 10 am. You will need to bring your insurance and ID card Acute Coronary Syndrome Inclusion Criteria At DC or during hospital stay patient has or had the following: ACS DIAGNOSIS No Discharge Core Measures Meds if any: Prescribed or Continued at Discharge Meds if any: NOT Prescribed or Continued at Discharge Congestive Heart Failure Inclusion Criteria At DC or during hospital stay patient has or had the following: CHF DIAGNOSIS No Discharge Core Measures Meds if any: Prescribed or Continued at Discharge Meds if any: NOT Prescribed or Continued at Discharge Cerebrovascular accident Inclusion Criteria At DC or during hospital stay patient has or had the following: CVA/TIA Diagnosis No Discharge Core Measures Meds if any: Prescribed or Continued at Discharge Meds if any: NOT Prescribed or Continued at Discharge Venous thromboembolism Inclusion Criteria VTE Diagnosis No VTE Type NONE VTE Confirmed by (Test) NONE Discharge Core Measures - Per Current guidelines, there needs to be overlap - treatment for the first 5 days of Warfarin therapy. - If discharged on Warfarin prior to 5 days of - overlap therapy, the patient will need to be - assessed for post discharge needs including - *Post discharge parental anticoagulation - *Warfarin and/or parental anticoagulation education - *Follow up date to check INR post discharge At least 5 days overlap therapy as Inpatient No Meds if any: Prescribed or Continued at Discharge Note: Overlap Therapy is Warfarin and Anticoagulant Meds if any: NOT Prescribed or Continued at Discharge
[2016-07-07] MEDS ORDERED: AUGMENTIN 875-1 EACH PO ×2 (07:33→09:25)
[2016-07-07] MEDS ORDERED: CODEINE SULFATE15 M1 PO (07:35)
[2016-07-07 07:45] VITALS: BP 92/50
--- NOTE | 2016-07-07 07:47 | PN- Student ---
Subjective Subjective: CC: "feeling better" IP Day #4 for 31yo male being treated for group A strep cellulitis. Pt states today he is feeling better overall and his leg is feeling better. Denies pain in the leg. Pt states overnight he was administered mophine and developed a puritic rash, alerted the nurse, and was given Benadryl. Rash, but no itching today. Denies fever/chills. Denies CP/SOB. Denies abd pain/nausea/vomiting/diarrhea. Objective Objective: Physical Exam: Vital Signs Date Time Temp Pulse Resp B/P B/P Pulse O2 O2 Flow FiO2 Mean Ox Delivery Rate 07/06 2319 98.2 50 20 118/70 96 Room Air 07/06 1426 98.9 64 18 124/70 96 Room Air GEN: resting in bed, NAD CV: S1S2, RRR, no murmurs/rubs/gallops LUNGS: CTA BL, no wheezes/crackles/rales/rhonchi ABD: ND, +bowel sounds, soft, nontender to palpation SKIN: warm, dry, well-perfused, diffuse maculopapular rash across the abdomen and more pronounced in the right axilla EXT: site of cellulitis on the lower left estrella much improved, erythema and edema both improved, nontender to palpation NEURO: AAOx3, CN II-XII grossly intact Results Results: Laboratory Tests 07/07/16 0619: CBC w Diff NO MAN DIFF REQ, RBC 4.00 L, MCV 85.0, MCH 28.8, RDW 13.3, MPV 8.4, Gran % 56.8, Lymphocytes % 24.4, Monocytes % 12.3 H, Eosinophils % 6.1 H, Basophils % 0.4, Absolute Granulocytes 3.3, Absolute Lymphocytes 1.4, Absolute Monocytes 0.7 H, Absolute Eosinophils 0.4, Absolute Basophils 0, PUBS MCHC 33.9 07/06/16 0644: CBC w Diff NO MAN DIFF REQ, RBC 4.15 L, MCV 85.9, MCH 28.6, RDW 13.2, MPV 8.9, Gran % 79.0 H, Lymphocytes % 8.9 L, Monocytes % 8.3, Eosinophils % 3.6, Basophils % 0.2, Absolute Granulocytes 9.3 H, Absolute Lymphocytes 1.1 L, Absolute Monocytes 1.0 H, Absolute Eosinophils 0.4, Absolute Basophils 0, PUBS MCHC 33.3 07/05/16 0628: CBC w Diff NO MAN DIFF REQ, RBC 4.00 L, MCV 87.0, MCH 28.7, RDW 13.4, MPV 8.9, Gran % 86.4 H, Lymphocytes % 5.0 L, Monocytes % 5.7, Eosinophils % 2.8, Basophils % 0.1, Absolute Granulocytes 9.6 H, Absolute Lymphocytes 0.6 L, Absolute Monocytes 0.6, Absolute Eosinophils 0.3, Absolute Basophils 0, PUBS MCHC 33.0 Microbiology 07/06 1040 BODY FLUID: Body Fluid Culture - CAN Cancelled: ENTER ERROR 07/06 1040 BODY FLUID: Gram Stain - CAN Cancelled: ENTER ERROR 07/07 847 EXTREMITIE: Gross Specimen Examination - RES BETA STREP GROUP A 07/07 847 EXTREMITIE: Gram Stain - RES 07/07 847 BODY FLUID: Body Fluid Culture - CAN Cancelled: ENTRY ERROR BY OR. 07/07 847 BODY FLUID: Gram Stain - CAN Cancelled: ENTRY ERROR BY OR. Assessment/Plan Assessment: Pt is a 31yo male being treated with IV Unasyn for group A strep cellulitis. After four days of IV abx and IR aspiration yesterday, cellulitis is improved today. Skin is still erythmatous, but there is improvement. Culture of aspirate grew group A strep. Infection is responding well to antibiotics. Central area of edema is much improved. WBC are now 5.8. Pt has remained afebrile for over 24hours. Last dose of acetaminophen 07/05/16. Pt requested morphine last night, but has denied pain this morning. After pt was administered morphine, pt developed a rash. Pt has similar reaction to Percocet (oxycodone/acetaminophen). Pt previously reported having a similar reaction to Percocet in the past. Pt's reaction to oxycodone and morphine, which are in the same drug class, could be due to an allergic vs non-allergic hypersensitivity reaction. Though tests for IgE are available, it is not necessary to test for opiate allergy as avoidance of this class of drugs is recommended for this patient regardless of the cause of hypersensitivity. Plan: -DC on PO Augmentin to complete total 7-10 day course of treatment -refer to new PCP for f/u, appt made, pt informed of appt and importance of f/u
--- NOTE | 2016-07-07 09:18 | PN- Housestaff ---
BANDARMARQUESHELENA GRIFFITHS 07/07/16 0918: Subjective Follow-up For: cellulitis Subjective: Seen and examined patient, offers no complaints. Denies fever or pain. Review of Systems Constitutional: Denies: chills, diaphoresis, fever, malaise, weakness, unexplained weight loss. Cardiovascular: Denies: chest pain, edema, orthopena, palpitations, peripheral edema, syncope. Respiratory: Denies: cough, hemoptysis, orthopnea, short of breath, sputum production, stridor, wheezing. Objective Last 24 Hrs of Vital Signs/I&O Vital Signs Date Time Temp Pulse Resp B/P B/P Pulse O2 O2 Flow FiO2 Mean Ox Delivery Rate 07/07 0745 98.3 52 18 92/50 97 Room Air 07/06 2319 98.2 50 20 118/70 96 Room Air 07/06 1426 98.9 64 18 124/70 96 Room Air Intake & Output 07/07 1600 07/07 0800 07/07 0000 Intake Total 410 100 Output Total 1100 Balance -690 100 Intake, IV 210 100 Intake, Oral 200 Output, Urine 1100 Physical Exam General Appearance: Alert, Oriented X3, Cooperative Cardiovascular: Regular Rate, Normal S1, Normal S2 Lungs: Clear to Auscultation, Normal Air Movement Extremities: erthyema and swelling improved markedly Current Medications: Current Medications Sig/Rk Start time Last Medication Dose Route Stop Time Status Admin Acetaminophen 650 MG Q6P PRN 07/03 2030 07/05 PO 1658 Ampicillin Sodium/ 3,000 MG Q6H 07/04 1000 AC 07/07 Sulbactam Sodium IV 0828 Sodium Chloride 100 ML Diphenhydramine HCl 50 MG Q4-6 PRN PRN 07/05 09 AC 07/06 IV 2249 Docusate Sodium 100 MG DAILY 07/05 1000 AC 07/07 PO 0820 Enoxaparin Sodium 40 MG DAILY 07/04 1000 07/07 SC 0817 Ketorolac 30 MG Q6-PRN PRN 07/05 09 AC 07/06 Tromethamine IV 0731 Morphine Sulfate 3 MG Q4P PRN 07/05 09 AC 07/06 IV 2024 Ondansetron HCl 4 MG Q6P PRN 07/05 09 AC IV Polyethylene Glycol 17 GM DAILY 07/05 1000 07/07 PO 0820 Senna/Docusate Sodium 2 TAB DAILY 07/05 1000 AC 07/07 PO 0819 Last 24 Hrs of Lab/[place] Results Last 24 Hrs of Labs/Mics: Laboratory Tests 07/07/16 0619: CBC w Diff NO MAN DIFF REQ, RBC 4.00 L, MCV 85.0, MCH 28.8, RDW 13.3, MPV 8.4, Gran % 56.8, Lymphocytes % 24.4, Monocytes % 12.3 H, Eosinophils % 6.1 H, Basophils % 0.4, Absolute Granulocytes 3.3, Absolute Lymphocytes 1.4, Absolute Monocytes 0.7 H, Absolute Eosinophils 0.4, Absolute Basophils 0, PUBS MCHC 33.9 Assessment/Plan Assessment: 31-year-old gentleman with past medical history significant for Lyme disease treated with 3 weeks doxycycline about 15 years ago present is a gentleman with redness and swelling in left lower extremity. In ER was found to have fever of 101.8 and white count of 17.6. 0.9 cm complex in the subcutaneous collection in the soft tissues overlying the mid tibia, most compatible with a small abscess. Attempted to drain in ER but was unsuccessful. Was given one dose of IV Unasyn and IV clindamycin in Ed. Given IV cefazolin and now on IV unasyn. Hospital day 4 afebrile overnight with wbc wnl. Vitals are stable. clinical improvement noted. s/p US giuded aspiration of abcess. aspiration prelim culture show beta strep grp A Problem List: cellulitis/?abscess anaphylaxis-resolved Plan: ID consulted, appreciate recommendations stable for discharge to home today on augmentin for a total of 10 days of abx duration. Appt made for him at [facility] for July 19 at 10am. DVT prophylaxis with Lovenox Patient is full code Problem List: 1. Cellulitis Pain Ratin Pain Location: na Pain Goal: Pain 4 or less Pain Plan: current plan Tomorrow's Labs & Rationales: none required JESUS MURPHY MD 07/07/16 1319: Attending MD Review Statement Attending Statement Attending MD Statement: examined this patient, discuss w/resident/PA/PROJECT MANAGER [employer]AIL, agreed w/resident/PA/PROJECT MANAGER [employer], reviewed EMR data (avail), discussed with nursing, discussed with case mgmt, reviewed images Attending Assessment/Plan: Patient is doing well today. No more fevers overnight and his white count is down to 5000. I suspect that IR is removal of 0.5 mL of the serosanguineous discharge from his cellulitis and local abscess has helped. He is leaving with an outpatient appointment to see the resident in clinic on Sunday, July 19. We secured that appointment for him and explained the need for him to keep that appointment. He'll go on Augmentin for a total of 10 days.
--- NOTE | 2016-07-07 13:40 | Discharge Summary ---
Visit Information Visit Dates Admission Date: 07/03/16 Discharge Date: 07/07/16 Hospital Course Course Attending Physician: JEFFREY NAJERA,JESUS Caldwell Primary Care Physician: Dr. Thompson [facility] Course: 31-year-old gentleman with past medical history significant for Lyme disease treated with 3 weeks of doxycycline about 15 years ago presented to [facility] for one day duration on redness and swelling in left lower extremity. 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 He also reported having subjective fevers, myalgias and chills. Denied trauma, nausea, abdominal pain or rash. In ER, was found to have fever of 101.8 and white count of 17.6 with left shift. US was significant for 0.9 cm complex in the subcutaneous collection in the soft tissues overlying the mid tibia, most compatible with a small abscess. Some amount of fluid was drained and culture was sent from the ER. Was given one dose of IV Unasyn and IV clindamycin in the Ed. He was admitted to the General medicine floor for Sepsis secondary to cellulitis complicated by Abcess formation. He continued to spike fevers and his white remained elevated. His vitals remained stable. He was given IV fluids and IV Cefazolin was started. His lower extremities cultures grew beta group strep A and his antibiotic was switched to IV Unasyn. Surgery was consulted the following day to determine if more of the collection could be aspirated, it was determined no intervention was required. For pain control he was given percocet after one dose he developed non blanching, macular papular skin eruption. Percocet was discontinued and rash resolved with one time dose of IV Benadryl. On day 3 of admission he underwent IR guided aspiration after which his fevers defervesced and his white trended down to normal. He was discharged on PO Augmentin for a total of 10 days of antibiotic therapy. Follow up appointment to [facility] with Dr. Regalado was arranged for him on July 19 at 10 am. Complications: Sepsis secondary to cellulitis complicated by Abcess formation Allergies: Coded Allergies: No Known Allergies (07/03/16) Significant Procedures: SERVICE DATE: 07/06/16 EXAM TYPE: US - US-CYST ASPIRAT. ULTRASOUND TECHNIQUE: Informed consent was obtained from the patient was obtained prior to the procedure. During this process, the procedure and potential alternatives were explained along with the intended outcome and benefits. The risks of the procedure including the possibility of an unsuccessful procedure, as well as the risk of not doing the procedure were discussed. The patient was given the opportunity to ask questions regarding the procedure and competent to make decisions. A signed consent form which documents this discussion was placed in the medical record. Following informed consent, the patient was placed supine on the procedure table. Diagnostic imaging was performed of the left estrella which demonstrated diffuse subcutaneous edema. Previously visualized 9 mm subcutaneous collection today measured 5 mm. The skin was marked and then prepped and draped in usual sterile fashion. Under direct sonographic guidance, a 20-gauge spinal needle was advanced into the 5 mm subcutaneous collection. Approximately 1 mL of thin, cloudy fluid was aspirated. There is complete collapse of the subcutaneous collection. Several other adjacent 2 to 3 mm hypoechoic foci were targeted, however, only an additional 0.5 mL could be aspirated. The needle was removed and pressure held for approximately 5 minutes until hemostasis was achieved. A sterile dressing was placed. Sample sent for requested analysis. Findings: 5 mm subcutaneous collection with complete interval reduction status post ultrasound-guided aspiration. Impression: Successful ultrasound-guided aspiration of 5 mm subcutaneous collection. SERVICE DATE: 07/03/16 EXAM TYPE: US - US-SUPERFICIAL IMAGING EXTREMI FINDINGS: A small focal area of ill-defined hypoechoic material is present in the edematous subcutaneous soft tissues at the area of palpable abnormality. This area measures 0.9 x 0.5 x 0.9 cm. Surrounding soft tissues are edematous with increased blood flow. No evidence of extension into the deeper soft tissues below the superficial fascial plane overlying the musculature. IMPRESSION: A 0.9 cm complex in the subcutaneous collection in the soft tissues overlying the mid tibia, most compatible with a small abscess. SERVICE DATE: 07/03/16 EXAM TYPE: RAD - [id number], LEFT FINDINGS: Soft tissue swelling is noted along the proximal to mid anterior aspect of the left tibia without any soft tissue gas formation or any underlying cortical destruction or periosteal reaction or any radiopaque foreign body. Specifically, the underlying tibia as well as the fibula appear intact without any focal osseous abnormality or periosteal reaction. IMPRESSION: Nonspecific soft tissue swelling is noted along the proximal to mid anterior part of the left leg without any underlying radiographic evidence of osteomyelitis. DICTATED BY: BENI NAJERA,JW Disposition Summary Disposition Principal Diagnosis: Sepsis Additional Diagnosis: cellulitis Discharge Disposition: home or self care Discharge Instructions General Discharge Information Code Status: Full Code Patient's Diet: Regular diet Patient's Activity: full activity Follow-Up Instructions/Appts: Follow up with Dr. Kenji regalado on July 19 at 10 am at [facility] Medications at Discharge Discharge Medications: Start taking the following new medications: Amoxicillin/Potassium Clav (Augmentin 875-125 Tablet) 875 MG-125 MG TABLET 1 Tablet ORAL TWICE DAILY Days = 6 No Refills Copies To: REG NAJERA,SJ Attending MD Review Statement Documenting Attending: JEFFREY NAJERA,JESUS Caldwell
== END 2016-07-07 11:13 | DRG 720 ==
LOC: ERH 12:25 → ERHI 17:41 → 2NB 17:41 → ENRESERV 18:49 → 2NB 19:51 → ENPENDDIS 07-07 09:06 → 2NB 07-07 11:13
PROVIDERS: Internal Medicine; Physician Assistant Medical; Student in an Organized Health Care Education/Training Program; ADMIT Internal Medicine
PROC: 0H9LXZZ Drainage of Left Lower Leg Skin, External Approach (ICD-10-PCS; 2016-07-03)
PROC: 0H9LXZX Drainage of Left Lower Leg Skin, External Approach, Diagnostic (ICD-10-PCS; principal; 2016-07-06)
DX: A41.9 Sepsis, unspecified organism (principal); L03.116 Cellulitis of left lower limb; L02.416 Cutaneous abscess of left lower limb; L27.1 Localized skin eruption due to drugs and medicaments taken internally; T40.2X5A Adverse effect of other opioids, initial encounter; Y92.230 Patient room in hospital as the place of occurrence of the external cause; B95.0 Streptococcus, group A, as the cause of diseases classified elsewhere; Z86.19 Personal history of other infectious and parasitic diseases
CPT/HCPCS: 2NBSP; 87070; 87075; 36415; 73590-LT; 76881; 87040; 87147; 96361; 96365; 96375; 99291; J0131; J0690; J1200; J1650; J1670; J1885; J2405; J3250